=== PATIENT | female | born 2000 | race Caucasian/White ===

== ENCOUNTER 2021-03-07 13:41 | Emergency (ER) | payer OTHER ==
[~2021-03-07] VITALS: Ht 165 cm; Wt 88.0 kg
--- OUTSIDE RECORDS SUMMARY | 2021-03-07 13:48 | XMS REPORT | Clinical Summary ---
Author Author [facility] Organization [facility] Address Unknown Phone Unavailable Care Team Providers Care Manager Chemistry Name Role Phone No, Pcp [employer] PRESS OPERATOR PCP Unavailable Allergies Not on File Medications Not on file Active Problems Not on file Encounters Not on filefrom Last 3 Months Immunizations Not on file Social History Date Tobacco Use Types Packs/Day Years Used Never Assessed Sex Assigned at Date Recorded Not on file Last Filed Vital Signs Not on file Plan of Treatment Health Maintenance Due Date Last Done Comments Cervical Cancer: 10/22/2020 Screening Goals Not on file Implants Not on file Procedures Not on filefrom Last 3 Months Results Not on filefrom Last 3 Months Additional Health Concerns Not on file Insurance Type Payer Benefit Subscriber ID Effective Phone Address Plan / Dates Group [facility] [id number] [facility] [id number] [facility] (Home) [place], [place] [address] Care Teams Start Date End Date Manager Chemistry Relationship Specialty 11/22/19 No, Pcp, [employer] PRESS OPERATOR PCP - General Family N/A Do not use Medicine
--- OUTSIDE RECORDS SUMMARY | 2021-03-07 13:48 | XMS REPORT | Clinical Summary ---
Author Author [facility] Organization [facility] Address Unknown Phone Unavailable Care Team Providers Care Alarm Technician Name Role Phone Pablo Meng MD PCP Source Comments Some departments are not documenting in the electronic medical record. If you d o not see the information that you expected, contact Release of Information in [facility] [employer] Information Management department at [phone] for further assistan ce in locating additional records.[facility] Allergies No known active allergies Medications End Date Status Medication Sig Dispensed Refills Start Date Active citalopram (CELEXA) 10 mg Take 10 mg by 0 tablet mouth at bedtime daily. Active acetaminophen (TYLENOL) Take 1,000 mg 0 500 mg tablet by mouth every 6 hours as needed for Pain. Max of 4,000 mg of acetaminophen in 24 hours. Active Problems Problem Noted Date Biceps tendinitis of right shoulder 04/03/2019 Resolved Problems Problem Noted Date Resolved Date Status post reconstruction of anterior cruciate ligament 0 11/15/2016 09/20/2017 Rupture of anterior cruciate ligament of right knee 201609/20/2017 Surgical History Surgery Date Site/Laterality Comments KNEE ARTHROSCOPY 03/31/2018 Knee/Right RIGHT KNEE AR THROSCOPY WITH REMOVAL OF CYCLOPS LESION performed by Soraya Johansen MD at [facility] OR/PERIOP ACL RECONSTRUCTION 10/02/2016 Knee/Right RIGHT - REP AIR ARTHROSCOPY ANTERIOR CRUCIATE performed by Koby Johansen MD at [facility] Medical devices from this surgery are i n the Implants section. Medical History Medical History Date Comments Depression Bilateral knee pain Family History Medical History Relation Name Comments Cancer Maternal Grandfather Relation Name Status Comments Father Alive Maternal Grandfather Mother Alive Social History Date Tobacco Use Types Packs/Day Years Used Never Smoker Smokeless Tobacco: Never Used Comments Alcohol Use Standard Drinks/Week No 0 (1 standard drink = 0.6 o z pure alcohol) Sex Assigned at Date Recorded Not on file Last Filed Vital Signs Reading Time Taken Comments Vital Sign 119/67 04/03/2019 8:43 AM FRAUD EXAMINER Blood Pressure 57 04/03/2019 8:43 AM FRAUD EXAMINER Pulse 36.7 C (98.1 F) 03/31/2018 4:30 PM FRAUD EXAMINER Temperature - - Respiratory Rate 98% 03/31/2018 4:30 PM FRAUD EXAMINER Oxygen Saturation - - Inhaled Oxygen Concentration 77.1 kg (170 lb) 04/10/2018 1:27 PM FRAUD EXAMINER Weight 162.6 cm (5' 4") 04/10/2018 1:27 PM FRAUD EXAMINER Height 29.18 04/10/2018 1:27 PM FRAUD EXAMINER Body Mass Index Plan of Treatment Health Maintenance Due Date Last Done Comments CHLAMYDIA SCREENING 18-24 1999 YEARS HPV VACCINES (1 - 2-dose 10/22/2010 series) HIV SCREENING 10/22/2014 DTAP/TDAP VACCINES ( - 10/22/2017 Tdap) HEPATITIS C SCREENING 10/22/2017 PHYSICAL (COMPREHENSIVE) 10/22/2017 EXAM CERVICAL CANCER SCREENING 10/22/2020 INFLUENZA VACCINE 11/13/2020 MENINGOCOCCAL VACCINE Aged Out No longer eligib le based on patient's age to (Tory LOZANO) complete this topic Implants Device Identifier Shelf Expiration Date Model / Serial / L ot Implanted Type Area Manufactur er 05/29/2021 [id number] / NO / [id number] Screw Interference Titanium 25mm Right: Knee YOKO H AND 9mm 2mm Acl Pcl Cannulated [employer] Implanted: Qty: 1 on 10/02/2016 by Koby Johansen MD at [facility] 11/12/2018 [id number] / NO / [id number] Button Fixation 25mm Endobutton Cl Right: Knee SM ITH AND Ultra Preloaded Braided [employer] Implanted: Qty: 1 on 10/02/2016 by Koby Johansen MD at [facility] 03/16/2021 [id number] / NO / [id number] 6.5 X 35mm Cancellous Screw Right: Knee CONMED Implanted: Qty: 1 on 10/02/2016 by Koby Gaitan MD at [facility] 02/19/2021 [id number] / NO / [id number] Washer 20mm Spiked Low Profile Right: Knee CONMED Orthopedic Titanium 2.5mm KEMI Implanted: Qty: 1 on 10/02/2016 by Koby Johansen MD at [facility] Results Not on filefrom Last 3 Months Advance Directives Patient Dipper And Baker Explanation Type Date Recorded Advance Directive/DPOA Care Teams Start Date End Date Alarm Technician Relationship Specialty 08/21/16 Pablo Meng MD PCP - General Family [address] [place] [address]
--- NOTE | 2021-03-07 13:56 | ED Abdominal Pain ---
General Chief Complaint: Abdominal/GI Problems Stated Complaint: ABD PAIN/VOMITING Source of Information: Patient, EMS Exam Limitations: No Limitations (GREGORIA ANNA APRN) History of Present Illness Date Seen by Provider: Mar 07, 2021 Time Seen by Provider: 13:54 Initial Comments To ER by EMS from home with reports of a 30-minute history of diarrhea suprapubic abdominal pain and vomiting x3 or 4. She started her menstrual cycle yesterday no history of this. Her abdominal pain is suprapubic in location not lateralized to one side or the other. No fevers or chills. No history of this. Denies possibility of . Only history is anxiety managed with citalopram. Timing/Duration: 1/2 Hour Severity/Quality: Severe Location: Suprapubic Radiation: No Radiation Activities at Onset: None Associated Symptoms: Nausea/Vomiting (GREGORIA ANNA APRN) Allergies and Home Medications Allergies Coded Allergies: No Known Drug Allergies (Unverified , 03/07/21) Patient Home Medication List Home Medication List Reviewed: Yes (GREGORIA ANNA APRN) Ondansetron (Ondansetron Odt) 8 Mg Tab.rapdis, 8 MG PO Q6H PRN for NAUSEA/VOMITING Prescribed by: GREGORIA ANNA on 03/07/21 1519 Sulfamethoxazole/Trimethoprim (Bactrim Ds Tablet) 1 Each Tablet, 1 EACH PO BID Prescribed by: GREGORIA ANNA on 03/07/21 1519 Review of Systems Review of Systems Constitutional: see HPI EENTM: No Symptoms Reported Respiratory: No Symptoms Reported Cardiovascular: No Symptoms Reported Gastrointestinal: See HPI, Abdominal Pain, Diarrhea, Nausea Genitourinary: No Symptoms Reported Musculoskeletal: no symptoms reported Skin: no symptoms reported Psychiatric/Neurological: No Symptoms Reported Endocrine: No Symptoms Reported Hematologic/Lymphatic: No Symptoms Reported (GREGORIA ANNA APRN) Physical Exam Vital Signs Vital Signs - First Documented 03/07/21 03/07/21 14:13 15:47 Temp 35.6 Pulse 50 Resp 18 B/P (MAP) 135/97 (110) Pulse Ox 100 (ANISA SNEED MD) Vital Signs Capillary Refill : (GREGORIA ANNA APRN) Height/Weight/BMI Height: '" Weight: lbs. oz. kg; BMI Method: General Appearance: WD/WN, mild distress (Anxious hyperventilating. Heart rate 55 sinus blood pressure 135/57. Rates pain 9 out of 10.) HEENT: PERRL/EOMI, normal ENT inspection Neck: non-tender, full range of motion Respiratory: no respiratory distress, no accessory muscle use Cardiovascular: no murmur, bradycardia Gastrointestinal: normal bowel sounds, soft, tenderness (Suprapubic) Extremities: normal range of motion, non-tender Neurologic/Psychiatric: alert, normal mood/affect, oriented x 3 Skin: normal color, warm/dry (GREGORIA ANNA APRN) Progress/Results/Core Measures Results/Orders Lab Results Laboratory Tests Test 03/07/21 13:52 03/07/21 14:22 Range/Units White Blood Count 13.7 H 4.3-11.0 10^3/uL Red Blood Count 4.76 3.80-5.11 10^6/uL Hemoglobin 14.1 11.5-16.0 g/dL Hematocrit 41 35-52 % Mean Corpuscular Volume 86 80-99 fL Mean Corpuscular Hemoglobin 30 25-34 pg Mean Corpuscular Hemoglobin Concent 35 32-36 g/dL Red Cell Distribution Width 12.5 10.0-14.5 % Platelet Count 354 130-400 10^3/uL Mean Platelet Volume 9.9 9.0-12.2 fL Immature Granulocyte % (Auto) 0 % Neutrophils (%) (Auto) 64 42-75 % Lymphocytes (%) (Auto) 27 12-44 % Monocytes (%) (Auto) 8 0-12 % Eosinophils (%) (Auto) 1 0-10 % Basophils (%) (Auto) 0 0-10 % Neutrophils # (Auto) 8.8 H 1.8-7.8 10^3/uL Lymphocytes # (Auto) 3.7 1.0-4.0 10^3/uL Monocytes # (Auto) 1.1 H 0.0-1.0 10^3/uL Eosinophils # (Auto) 0.1 0.0-0.3 10^3/uL Basophils # (Auto) 0.1 0.0-0.1 10^3/uL Immature Granulocyte # (Auto) 0.1 0.0-0.1 10^3/uL Sodium Level 139 135-145 MMOL/L Potassium Level 3.3 L 3.6-5.0 MMOL/L Chloride Level 106 98-107 MMOL/L Carbon Dioxide Level 17 L 21-32 MMOL/L Anion Gap 16 H 5-14 MMOL/L Blood Urea Nitrogen 8 7-18 MG/DL Creatinine 0.93 0.60-1.30 MG/DL Estimat Glomerular Filtration Rate 76 BUN/Creatinine Ratio 9 Glucose Level 134 H 70-105 MG/DL Calcium Level 9.6 8.5-10.1 MG/DL Corrected Calcium 9.2 8.5-10.1 MG/DL Total Bilirubin 0.6 0.1-1.0 MG/DL Aspartate Amino Transf (AST/SGOT) 21 5-34 U/L Alanine Aminotransferase (ALT/SGPT) 15 0-55 U/L Alkaline Phosphatase 50 40-136 U/L Total Protein 8.1 6.4-8.2 GM/DL Albumin 4.5 3.2-4.5 GM/DL Serum Test, Qualitative NEGATIVE NEGATIVE Urine Color YELLOW Urine Clarity CLEAR Urine pH 6.5 5-9 Urine Specific [place] 1.025 H 1.016-1.022 Urine Protein 2+ H NEGATIVE Urine Glucose (UA) NEGATIVE NEGATIVE Urine Ketones 1+ H NEGATIVE Urine Nitrite NEGATIVE NEGATIVE Urine Bilirubin NEGATIVE NEGATIVE Urine Urobilinogen 1.0 < = 1.0 MG/DL Urine Leukocyte Esterase TRACE H NEGATIVE Urine RBC (Auto) 2+ H NEGATIVE Urine RBC 2-5 H /HPF Urine WBC 10-25 H /HPF Urine Crystals PRESENT H /LPF Urine Amorphous Sediment MOD BARAK URATES H /LPF Urine Bacteria FEW H /HPF Urine Casts NONE /LPF Urine Mucus LARGE H /LPF Urine Culture Indicated YES (ANISA SNEED MD) Medications Given in ED Current Medications Medications Dose Ordered Sig/Meghana Route Start Time Stop Time Status Last Admin Dose Admin Ceftriaxone Sodium/Dextrose 50 ml @ 100 mls/hr ONCE ONCE IV 03/07/21 15:15 03/07/21 15:44 DC 03/07/21 15:25 100 MLS/HR Fentanyl Citrate 50 mcg ONCE ONCE IVP 03/07/21 14:00 03/07/21 14:01 DC 03/07/21 14:04 50 MCG Ketorolac Tromethamine 15 mg ONCE ONCE IVP 03/07/21 14:00 03/07/21 14:01 DC 03/07/21 14:02 15 MG (ANISA SNEED MD) Vital Signs/I&O 03/07/21 03/07/21 14:13 15:47 Temp 35.6 Pulse 50 50 Resp 18 16 B/P (MAP) 135/97 (110) 135/97 Pulse Ox 100 (ANISA SNEED MD) Departure Communication (Admissions) NAME: [facility] REC#: [id number] PT STATUS: REG ER : 2000 PHYSICIAN: GREGORIA ANNA APRN ADMIT DATE: 03/07/21/ER Draft Date of Exam:03/07/21 US NON OB PELVIS COMP/TRANSVAG PROCEDURE: Pelvic comp/transvaginal sonogram. TECHNIQUE: Complete transabdominal and transvaginal pelvic ultrasound was performed. In addition, limited pelvic Doppler was performed. INDICATION: Pelvic pain with nausea and vomiting. FINDINGS: Uterus is retroverted measuring 7.1 x 3.0 x 4.0 cm. Endometrium is 5 mm in thickness. No myometrial mass is detected. Right ovary measures 4.1 x 2.5 x 2.8 cm and left ovary measures 5.2 x 1.8 x 2.7 cm. Both ovaries demonstrate blood flow. Ovaries contain small follicles. There is some free fluid in the cul-de-sac but no other abnormalities detected. IMPRESSION: Essentially unremarkable transabdominal and transvaginal pelvic ultrasound. Dictated on workstation # [id number] Dict: 03/07/21 1525 Trans: 03/07/21 1530 AS [id number] Interpreted by: TIAGO AGUILERA MD Electronically signed by: [id number]-she is completely pain-free. No nausea. I can palpate her abdomen now in the right lower quadrant suprapubic and left lower quadrant without any tenderness grimacing or guarding. Father is at the bedside now. Remains hemodynamically stable. She does have a bladder infection. I don't find anything concerning enough to warrant CT scan at this time given the resolution of her symptoms. I discussed with her and her father the need to return to ER for any vomiting persistent or worsening pain and at that point we would proceed with CT scan of the abdomen pelvis. Will empirically treat her bladder infection with Bactrim DS twice daily #10 with as needed Zofran. They both agree to return for any worsening or persistent symptoms. proced tech gave report to me of trace free fluid in the cul-de-sac, good flow to both ovaries, no cyst no fluid collection or other abnormality. (GREGORIA ANNA APRN) Impression Primary Impression: Urinary tract infection Disposition: HOME, SELF-CARE Condition: Stable Departure-Patient Inst. Decision time for Depature: 15:17 (GREGORIA ANNA APRN) Patient Instructions: Urinary Tract Infection, Adult (DC) Add. Discharge Instructions: 1. Return to ER for any concerns 2. Follow-up with your doctor next week 3. Antibiotics and nausea medication as directed. Tylenol and ibuprofen for any pain. Return to ER for any worsening or persistent pain that does not go away after a few days. All discharge instructions reviewed with patient and/or family. Voiced understanding. Scripts Ondansetron (Ondansetron Odt) 8 Mg Tab.rapdis 8 MG PO Q6H PRN for NAUSEA/VOMITING, #10 TAB Prov: GREGORIA ANNA APRN 03/07/21 Sulfamethoxazole/Trimethoprim (Bactrim Ds Tablet) 1 Each Tablet 1 EACH PO BID, #10 TAB Prov: GREGORIA ANNA APRN 03/07/21 Work/School Note: Work Release Form Date Seen in the Emergency Department: Mar 07, 2021 Return to Work: Mar 09, 2021 ATTENDING PHYSICIAN NOTE: I was physically present as attending physician in the emergency department during the care of this patient, but I was not directly involved in the decision making or delivery of care for this patient. (ANISA SNEED MD) GREGORIA ANNA APRN Mar 07, 2021 13:56 ANISA SNEED MD Mar 07, 2021 18:59
[2021-03-07] MEDS ORDERED: KETOROLAC 30 MG/ML VIAL IVP ONE (14:00)
[2021-03-07] MEDS ORDERED: fentaNYL INJ 100 MCG/2 ML AMP IVP ONE (14:00)
[2021-03-07 14:01] LABS: BASOPHILS # (AUTO) 0.1 10^3/uL (0.0-0.1); BASOPHILS % (AUTO) 0 % (0-10); EOSINOPHILS # (AUTO) 0.1 10^3/uL (0.0-0.3); EOSINOPHILS % (AUTO) 1 % (0-10); HEMATOCRIT 41 % (35-52); HEMOGLOBIN 14.1 g/dL (11.5-16.0); LYMPHOCYTES # (AUTO) 3.7 10^3/uL (1.0-4.0); LYMPHOCYTES % (AUTO) 27 % (12-44); MEAN CORPUSCULAR HEMOGLOBIN 30 pg (25-34); MEAN CORPUSCULAR HGB CONC 35 g/dL (32-36); MEAN CORPUSCULAR VOLUME 86 fL (80-99); MEAN PLATELET VOLUME 9.9 fL (9.0-12.2); MONOCYTES # (AUTO) 1.1 10^3/uL (0.0-1.0); MONOCYTES % (AUTO) 8 % (0-12); NEUTROPHILS # (AUTO) 8.8 10^3/uL (1.8-7.8); NEUTROPHILS % (AUTO) 64 % (42-75); PLATELET COUNT 354 10^3/uL (130-400); WHITE BLOOD COUNT 13.7 10^3/uL (4.3-11.0)
[2021-03-07 14:13] LABS: ALBUMIN 4.5 GM/DL (3.2-4.5); POTASSIUM 3.3 MMOL/L (3.6-5.0)
[2021-03-07 14:14] LABS: CALCIUM 9.6 MG/DL (8.5-10.1)
[2021-03-07 14:15] LABS: TOTAL PROTEIN 8.1 GM/DL (6.4-8.2)
[2021-03-07 14:17] LABS: BILIRUBIN,TOTAL 0.6 MG/DL (0.1-1.0)
[2021-03-07 14:19] LABS: CREATININE SERUM 0.93 MG/DL (0.60-1.30)
[2021-03-07 14:40] LABS: BILIRUBIN,URINE NEGATIVE (NEGATIVE); CLARITY,URINE CLEAR; COLOR,URINE YELLOW; GLUCOSE, URINE (UA) NEGATIVE (NEGATIVE); KETONES,URINE 1+ (NEGATIVE); LEUKOCYTE ESTERASE ,URINE TRACE (NEGATIVE); NITRITE,URINE NEGATIVE (NEGATIVE); PH,URINE 6.5 (5-9); PROTEIN,URINE 2+ (NEGATIVE)
[2021-03-07 14:57] LABS: AMORPHOUS SEDIMENT,UR MOD AMOR URATES /LPF; BACTERIA,URINE FEW /HPF
[2021-03-07] MEDS ORDERED: NS 100 ML (IVPB) BAG IV ONE (15:15)
[2021-03-07] MEDS ORDERED: IOHEXOL 350 MG/ML 100 ML (OMNIPAQUE 350) VIAL IV ONE (15:15)
[2021-03-07] MEDS ORDERED: cefTRIAXone 1 GM PRE-MIX 50 ML IV ONE (15:15)
[2021-03-07] MEDS ORDERED: HOLD METFORMIN - RECEIVED CONTRAST 20 ML VIAL IV SCH (15:15)
[2021-03-07] MEDS ORDERED: ONDA8TAB13 PO (15:19)
[2021-03-07] MEDS ORDERED: SULF1TAB38 PO (15:19)
--- NOTE | 2021-03-07 15:30 | Diagnostic Imaging Report ---
PROCEDURE: Pelvic comp/transvaginal sonogram. TECHNIQUE: Complete transabdominal and transvaginal pelvic ultrasound was performed. In addition, limited pelvic Doppler was performed. INDICATION: Pelvic pain with nausea and vomiting. FINDINGS: Uterus is retroverted measuring 7.1 x 3.0 x 4.0 cm. Endometrium is 5 mm in thickness. No myometrial mass is detected. Right ovary measures 4.1 x 2.5 x 2.8 cm and left ovary measures 5.2 x 1.8 x 2.7 cm. Both ovaries demonstrate blood flow. Ovaries contain small follicles. There is some free fluid in the cul-de-sac but no other abnormalities detected. IMPRESSION: Essentially unremarkable transabdominal and transvaginal pelvic ultrasound. Dictated by: Dictated on workstation # [id number]
[2021-03-07 15:47] VITALS: BP 135/97
== END 2021-03-07 15:48 | disposition home or self-care (01) ==
LOC: ER 13:43
DX: N39.0 Urinary tract infection, site not specified (principal); R06.4 Hyperventilation
CPT/HCPCS: 36415; 76830; 76856; 80053; 81000; 84703; 85025; 87088

== ENCOUNTER 2022-05-06 11:03 | Emergency (ER) | payer BC, OTHER ==
[~2022-05-06] VITALS: Ht 162 cm; Wt 95.0 kg
[~2022-05-06 11:03] MED LIST: ONDA8TAB13 PO; SULF1TAB38 PO
[2022-05-06 11:27] LABS: BILIRUBIN,URINE NEGATIVE (NEGATIVE); CLARITY,URINE CLEAR; COLOR,URINE YELLOW; GLUCOSE, URINE (UA) NEGATIVE (NEGATIVE); KETONES,URINE 2+ (NEGATIVE); LEUKOCYTE ESTERASE ,URINE TRACE (NEGATIVE); NITRITE,URINE NEGATIVE (NEGATIVE); PROTEIN,URINE 2+ (NEGATIVE)
[2022-05-06] MEDS ORDERED: ONDANSETRON 4 MG/2 ML (SDV) Z0FRAN IVP ONE (11:30)
[2022-05-06] MEDS ORDERED: NS IV 1000 ML 1,000 ML IV SCH (11:30)
[2022-05-06 11:35] LABS: BACTERIA,URINE FEW /HPF
--- NOTE | 2022-05-06 11:36 | ED GI ---
General Chief Complaint: Abdominal/GI Problems Stated Complaint: VOMITING, Nursing Triage Note: PT STATES HAS BEEN THROWING UP, D/T ETOH INTAKE, STATES DRANK VODKA LAST PM. PT STATES UNABLE TO KEEP WATER DOWN Source of Information: Patient Exam Limitations: No Limitations History of Present Illness Date Seen by Provider: May 06, 2022 Time Seen by Provider: 11:13 Initial Comments 19-year-old female presents to the ER with reports of vomiting all night. States she drank alcohol last night and thinks she overdid it. States she did not eat much yesterday. She usually does not drink alcohol. States she has been able to keep water down this morning. Denies alcohol use today. Also reports of burning pain in her chest, she thinks it is due to vomiting. She had a normal bowel movement last night. Denies dysuria. Reports feeling feverish, denies chills. Reports a little bit of shortness of air. Denies abdominal pain, diarrhea, vaginal bleeding/discharge. States she smokes marijuana approximately 2 times a week, states she smoked it last night. She also vapes. Past medical history of anxiety and depression, takes Lexapro. Allergies and Home Medications Allergies Coded Allergies: No Known Drug Allergies (Unverified , 03/07/21) Patient Home Medication List Home Medication List Reviewed: Yes Ondansetron (Ondansetron Odt) 8 Mg Tab.rapdis, 8 MG PO Q6H PRN for NAUSEA/VOMITING Prescribed by: GREGORIA ANNA on 03/07/21 1519 Ondansetron (Ondansetron Odt) 4 Mg Tab.rapdis, 4 MG SL Q4H PRN for NAUSEA/VOMITING Prescribed by: Catrachita Ochoa on 05/06/22 1229 Sulfamethoxazole/Trimethoprim (Bactrim Ds Tablet) 1 Each Tablet, 1 EACH PO BID Prescribed by: GREGORIA ANNA on 03/07/21 1519 Review of Systems Review of Systems Constitutional: see HPI Past Xcrwxcn-Cjnhav-Xdlvuc Hx Patient Social History Tobacco Use?: No Use of E-Cig and/or Vaping dev: Yes E-Cig or Vaping type used: Nicotine, Marijuana Use of E-Cig and/or Vaping Sal: Current Everyday User Substance use?: Yes Substance type: Marijuana Substance frequency: Couple times a week Alcohol Use?: Yes Alcohol type: Hard Liquor Alcohol Frequency: Several times a month Pt feels they are or have been: No Immunizations Up To Date Influenza Vaccine Up-to-Date: No; Not Current First/Initial COVID19 Vaccinat: Y Second COVID19 Vaccination Emigdio: T COVID19 Vaccine Clerical Transcriber: CRISTHIAN Past Medical History Surgery/Hospitalization HX: DENIES Last Menstrual Period: Apr 25, 2022 Physical Exam Vital Signs Vital Signs - First Documented 05/06/22 11:10 Temp 36.5 Pulse 46 Resp 18 B/P (MAP) 132/61 (84) Pulse Ox 96 O2 Delivery Room Air Capillary Refill : Less Than 3 Seconds Height/Weight/BMI Height: '" Weight: lbs. oz. kg; 36.00 BMI Method: General Appearance: WD/WN, no apparent distress Neck: supple, normal inspection Respiratory: lungs clear, normal breath sounds, no respiratory distress, no accessory muscle use Cardiovascular: no edema, no gallop, no JVD, no murmur, bradycardia Gastrointestinal: normal bowel sounds, non tender, soft, no organomegaly, no pulsatile mass Extremities: normal range of motion, normal inspection Neurologic/Psychiatric: alert, normal mood/affect, oriented x 3 Skin: normal color, warm/dry Progress/Results/Core Measures Results/Orders Lab Results Laboratory Tests Test 05/06/22 11:20 05/06/22 11:38 Range/Units Urine Color YELLOW Urine Clarity CLEAR Urine pH 8.0 5-9 Urine Specific [place] 1.020 1.016-1.022 Urine Protein 2+ H NEGATIVE Urine Glucose (UA) NEGATIVE NEGATIVE Urine Ketones 2+ H NEGATIVE Urine Nitrite NEGATIVE NEGATIVE Urine Bilirubin NEGATIVE NEGATIVE Urine Urobilinogen 0.2 < = 1.0 MG/DL Urine Leukocyte Esterase TRACE H NEGATIVE Urine RBC (Auto) NEGATIVE NEGATIVE Urine RBC NONE /HPF Urine WBC 2-5 /HPF Urine Squamous Epithelial Cells 2-5 /HPF Urine Crystals NONE /LPF Urine Bacteria FEW H /HPF Urine Casts NONE /LPF Urine Mucus NEGATIVE /LPF Urine Culture Indicated YES White Blood Count 22.6 H 4.3-11.0 10^3/uL Red Blood Count 4.80 3.80-5.11 10^6/uL Hemoglobin 14.2 11.5-16.0 g/dL Hematocrit 41 35-52 % Mean Corpuscular Volume 86 80-99 fL Mean Corpuscular Hemoglobin 30 25-34 pg Mean Corpuscular Hemoglobin Concent 35 32-36 g/dL Red Cell Distribution Width 12.4 10.0-14.5 % Platelet Count 325 130-400 10^3/uL Mean Platelet Volume 9.9 9.0-12.2 fL Immature Granulocyte % (Auto) 1 % Neutrophils (%) (Auto) 94 H 42-75 % Lymphocytes (%) (Auto) 3 L 12-44 % Monocytes (%) (Auto) 3 0-12 % Eosinophils (%) (Auto) 0 0-10 % Basophils (%) (Auto) 0 0-10 % Neutrophils # (Auto) 21.2 H 1.8-7.8 10^3/uL Lymphocytes # (Auto) 0.6 L 1.0-4.0 10^3/uL Monocytes # (Auto) 0.7 0.0-1.0 10^3/uL Eosinophils # (Auto) 0.0 0.0-0.3 10^3/uL Basophils # (Auto) 0.0 0.0-0.1 10^3/uL Immature Granulocyte # (Auto) 0.1 0.0-0.1 10^3/uL Neutrophils % (Manual) 92 % Lymphocytes % (Manual) 3 % Monocytes % (Manual) 3 % Eosinophils % (Manual) 0 % Basophils % (Manual) 0 % Band Neutrophils 2 % Blood Morphology Comment NORMAL Sodium Level 141 135-145 MMOL/L Potassium Level 4.1 3.6-5.0 MMOL/L Chloride Level 104 98-107 MMOL/L Carbon Dioxide Level 20 L 21-32 MMOL/L Anion Gap 17 H 5-14 MMOL/L Blood Urea Nitrogen 10 7-18 MG/DL Creatinine 0.87 0.60-1.30 MG/DL Estimat Glomerular Filtration Rate 97 BUN/Creatinine Ratio 11 Glucose Level 116 H 70-105 MG/DL Calcium Level 10.1 8.5-10.1 MG/DL Corrected Calcium 8.5-10.1 MG/DL Total Bilirubin 0.6 0.1-1.0 MG/DL Aspartate Amino Transf (AST/SGOT) 28 5-34 U/L Alanine Aminotransferase (ALT/SGPT) 31 0-55 U/L Alkaline Phosphatase 56 40-136 U/L Troponin I < 0.028 <0.028 NG/ML Total Protein 8.9 H 6.4-8.2 GM/DL Albumin 5.1 H 3.2-4.5 GM/DL Amylase Level 111 25-125 U/L Lipase 8 8-78 U/L My Orders Orders - CATRACHITA OCHOA APRN Ua Culture If Indicated (05/06/22 11:13) Urine Bedside (05/06/22 11:13) Comprehensive Metabolic Panel (05/06/22 11:27) Lipase (05/06/22 11:27) Amylase (05/06/22 11:27) Cbc With Automated Diff (05/06/22 11:27) Ns Iv 1000 Ml (Sodium Chloride 0.9%) (05/06/22 11:30) Ondansetron Injection (Zofran Injectio (05/06/22 11:30) Troponin I [place] (05/06/22 11:27) Ekg Tracing (05/06/22 11:27) Urine Culture (05/06/22 11:20) Manual Differential (05/06/22 11:38) Lidocaine 2% Viscous 15 Ml (Xylocaine Vi (05/06/22 12:15) Antacid Suspension (Mylanta Suspension (05/06/22 12:15) Medications Given in ED Current Medications Medications Dose Ordered Sig/Meghana Route Start Time Stop Time Status Last Admin Dose Admin Al Hydrox/Mg Hydrox/Simethicone 30 ml ONCE ONCE PO 05/06/22 12:15 05/06/22 12:16 DC 05/06/22 12:08 30 ML Lidocaine HCl 15 ml ONCE ONCE PO 05/06/22 12:15 05/06/22 12:16 DC 05/06/22 12:08 15 ML Ondansetron HCl 4 mg ONCE ONCE IVP 05/06/22 11:30 05/06/22 11:31 DC 05/06/22 11:40 4 MG Vital Signs/I&O 05/06/22 05/06/22 11:10 12:38 Temp 36.5 Pulse 46 59 Resp 18 18 B/P (MAP) 132/61 (84) 104/72 Pulse Ox 96 99 O2 Delivery Room Air Room Air Blood Pressure Mean: 84 Progress Progress Note #1: Time: 11:30 Progress Note Patient seen and evaluated, resting in recliner, no acute distress. Based on exam and symptoms, differential diagnosis includes but is not limited to g astroenteritis, veisalgia, , UTI, RI, GERD. Work-up initiated, CBC, CMP, amylase, lipase, troponin, UA, hCG, EKG. IV fluids and Zofran ordered. Progress Note #2: Time: 12:23 Progress Note Labs reviewed. CBC showed elevated WBC at 22.6, neutrophils elevated at 94, likely due to from vomiting. Considered CT abdomen pelvis, but patient has no abdominal pain. CBC showed decreased CO2 at 20, anion gap at 17, albumin elevated at 5.1, total protein elevated at 8.9. These results are likely due to lack of eating and dehydration. Troponin negative. Urinalysis showed 2+ ketones, and 2+ protein, likely due to dehydration and lack of eating. UA also showed trace leukocytes and few bacteria, will not treat due to lack of UTI symptoms. Will instruct patient to monitor for UTI symptoms, and to return or see primary care if she develops symptoms. Discussed test results with patient. Patient given GI cocktail. Patient states she is feeling better and she is ready to go home. Patient provided return precautions. Will send prescription for Zofran. Initial ECG Impression Date: May 06, 2022 Initial ECG Impression Time: 11:33 Initial ECG Rate: 46 Initial ECG Rhythm: S.Alejandro Initial ECG Intervals: Normal Initial ECG Impression: Normal Initial ECG Comparisson: No Previous ECG Available Departure Impression Primary Impression: Vomiting Qualified Codes: R11.11 - Vomiting without nausea Additional Impression: Dehydration Disposition: 01 HOME, SELF-CARE Condition: Stable Departure-Patient Inst. Decision time for Depature: 12:28 Patient Instructions: [place] Diet, Nausea and Vomiting, Adult ED Add. Discharge Instructions: Take Zofran as needed for nausea vomiting. It may cause constipation, so do not take unless needed. Slowly restart to eat food. Do not overindulge. Eat a bland diet. Follow-up with primary care provider. Monitor for signs of urinary tract infection, and see your primary care provider if you develop any. Your urine sample today will be cultured, you will be called if any bacteria grows and you need a antibiotic. Return if you develop abdominal pain, you are unable to tolerate fluids by mouth, having difficulty breathing, fevers greater than 100.4, recurrent uncontrolled vomiting, or any other new, concerning, or worsening symptoms. All discharge instructions reviewed with patient and/or family. Voiced understanding. Scripts Ondansetron (Ondansetron Odt) 4 Mg Tab.rapdis 4 MG SL Q4H PRN for NAUSEA/VOMITING, #10 TAB 0 Refills Prov: CATRACHITA OCHOA APRN 05/06/22 CATRACHITA OCHOA APRN May 06, 2022 11:36
[2022-05-06 11:53] LABS: BASOPHILS % (AUTO) 0 % (0-10); EOSINOPHILS % (AUTO) 0 % (0-10); HEMATOCRIT 41 % (35-52); HEMOGLOBIN 14.2 g/dL (11.5-16.0); LYMPHOCYTES # (AUTO) 0.6 10^3/uL (1.0-4.0); LYMPHOCYTES % (AUTO) 3 % (12-44); MEAN CORPUSCULAR HEMOGLOBIN 30 pg (25-34); MEAN CORPUSCULAR HGB CONC 35 g/dL (32-36); MEAN CORPUSCULAR VOLUME 86 fL (80-99); MEAN PLATELET VOLUME 9.9 fL (9.0-12.2); MONOCYTES # (AUTO) 0.7 10^3/uL (0.0-1.0); MONOCYTES % (AUTO) 3 % (0-12); NEUTROPHILS # (AUTO) 21.2 10^3/uL (1.8-7.8); NEUTROPHILS % (AUTO) 94 % (42-75); PLATELET COUNT 325 10^3/uL (130-400); WHITE BLOOD COUNT 22.6 10^3/uL (4.3-11.0)
[2022-05-06 12:04] LABS: ALBUMIN 5.1 GM/DL (3.2-4.5)
[2022-05-06 12:05] LABS: AMYLASE 111 U/L (25-125); CHLORIDE 104 MMOL/L (98-107); POTASSIUM 4.1 MMOL/L (3.6-5.0); SODIUM 141 MMOL/L (135-145)
[2022-05-06 12:06] LABS: CALCIUM 10.1 MG/DL (8.5-10.1)
[2022-05-06 12:07] LABS: GLUCOSE 116 MG/DL (70-105); TOTAL PROTEIN 8.9 GM/DL (6.4-8.2)
[2022-05-06 12:08] LABS: CARBON DIOXIDE 20 MMOL/L (21-32)
[2022-05-06 12:09] LABS: BILIRUBIN,TOTAL 0.6 MG/DL (0.1-1.0)
[2022-05-06 12:10] LABS: ALKALINE PHOSPHATASE 56 U/L (40-136)
[2022-05-06 12:11] LABS: CREATININE SERUM 0.87 MG/DL (0.60-1.30); GFR ESTIMATED 97
[2022-05-06 12:12] LABS: BUN/CREATININE RATIO 11
[2022-05-06 12:14] LABS: ALANINE AMINOTRANSFERASE 31 U/L (0-55); LIPASE 8 U/L (8-78)
[2022-05-06] MEDS ORDERED: LIDOCAINE 2% VISCOUS 15 ML UDC PO ONE (12:15)
[2022-05-06] MEDS ORDERED: ANTACID SUSP 30 ML UDC (MYLANTA) PO ONE (12:15)
[2022-05-06 12:18] LABS: BAND NEUTROPHILS 2 %; BASOPHILS % (MANUAL) 0 %; EOSINOPHILS % (MANUAL) 0 %; LYMPHOCYTES % (MANUAL) 3 %; MONOCYTES % (MANUAL) 3 %; NEUTROPHILS % (MANUAL) 92 %; RBC MORPH NORMAL
[2022-05-06] MEDS ORDERED: ONDA4TAB11 SL (12:29)
[2022-05-06 12:38] VITALS: BP 104/72
== END 2022-05-06 12:38 | disposition home or self-care (01) ==
LOC: EDUNIT# 11:03 → ER 11:06
DX: R11.10 Vomiting, unspecified (principal); E86.0 Dehydration; F17.290 Nicotine dependence, other tobacco product, uncomplicated
CPT/HCPCS: 36415; 80053; 81000; 82150; 83690; 84484; 84703; 85007; 85027; 87088; 93005

== ENCOUNTER 2022-07-13 22:52 | Emergency (ER) | payer BC ==
[~2022-07-13] VITALS: Ht 162.6 cm; Wt 90.7 kg
[~2022-07-13 22:52] MED LIST changes: +ONDA4TAB11 SL
--- NOTE | 2022-07-13 23:18 | ED GI ---
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 Patient has had this off and on for months. She does smoke marijuana daily and recently changed brands of marijuana that she smokes in the last 2 months. She denies abdominal cramping or pain. She does have a little chest discomfort from retching this evening. Onset of symptoms approximately an hour and a half prior to arrival. No fevers or chills. No black or bloody stools recently. She did have a normal bowel movement this evening. No blood in her emesis. No alcohol tonight. No burning with urination. No abnormal vaginal discharge. She attempted to take Zofran this evening but is not sure that it dissolved prior to throwing up again. No prior abdominal surgeries. Feels very nauseous currently. Brings a friend with her who also acts as historian. Timing/Duration: 1 Hour Severity/Quality: Severe Location: Generalized Abdomen Radiation: No Radiation Activities at Onset: Other (after eating) Modifying Factors: Improves With Other (tried Zofran) Associated Symptoms: Nausea/Vomiting Allergies and Home Medications Allergies Coded Allergies: No Known Drug Allergies (Unverified , 03/07/21) Patient Home Medication List Home Medication List Reviewed: Yes Ondansetron (Ondansetron Odt) 8 Mg Tab.rapdis, 8 MG PO Q6H PRN for NAUSEA/VOMITING Prescribed by: GREGORIA ANNA on 03/07/21 1519 Ondansetron (Ondansetron Odt) 4 Mg Tab.rapdis, 4 MG SL Q4H PRN for NAUSEA/VOMITING Prescribed by: Catrachita Ochoa on 05/06/22 1229 Sulfamethoxazole/Trimethoprim (Bactrim Ds Tablet) 1 Each Tablet, 1 EACH PO BID Prescribed by: GREGORIA ANNA on 03/07/21 1519 Review of Systems Review of Systems Constitutional: see HPI EENTM: No Symptoms Reported Respiratory: No Symptoms Reported Cardiovascular: No Symptoms Reported Gastrointestinal: Nausea, Vomiting Genitourinary: No Symptoms Reported Musculoskeletal: no symptoms reported Skin: no symptoms reported Psychiatric/Neurological: Anxiety Past Scjkptb-Xwazsn-Xltyxr Hx Immunizations Up To Date First/Initial COVID19 Vaccinat: Y Second COVID19 Vaccination Emigdio: T Past Medical History Surgery/Hospitalization HX: DENIES Physical Exam Vital Signs Vital Signs - First Documented 07/13/22 23:00 Temp 36.5 Pulse 60 Resp 24 B/P (MAP) 139/73 (95) Pulse Ox 99 Capillary Refill : Height/Weight/BMI Height: '" Weight: lbs. oz. kg; 36.00 BMI Method: General Appearance: WD/WN, mild distress HEENT: PERRL/EOMI Respiratory: lungs clear, normal breath sounds, no respiratory distress, no accessory muscle use Cardiovascular: regular rate, rhythm Gastrointestinal: normal bowel sounds, non tender, soft Neurologic/Psychiatric: alert, oriented x 3 Skin: normal color, diaphoresis Progress/Results/Core Measures Results/Orders Lab Results Laboratory Tests Test 07/13/22 23:05 Range/Units White Blood Count 13.7 H 4.3-11.0 10^3/uL Red Blood Count 4.79 3.80-5.11 10^6/uL Hemoglobin 14.1 11.5-16.0 g/dL Hematocrit 41 35-52 % Mean Corpuscular Volume 85 80-99 fL Mean Corpuscular Hemoglobin 29 25-34 pg Mean Corpuscular Hemoglobin Concent 35 32-36 g/dL Red Cell Distribution Width 11.9 10.0-14.5 % Platelet Count 325 130-400 10^3/uL Mean Platelet Volume 10.1 9.0-12.2 fL Immature Granulocyte % (Auto) 0 % Neutrophils (%) (Auto) 75 42-75 % Lymphocytes (%) (Auto) 15 12-44 % Monocytes (%) (Auto) 9 0-12 % Eosinophils (%) (Auto) 0 0-10 % Basophils (%) (Auto) 0 0-10 % Neutrophils # (Auto) 10.3 H 1.8-7.8 10^3/uL Lymphocytes # (Auto) 2.1 1.0-4.0 10^3/uL Monocytes # (Auto) 1.2 H 0.0-1.0 10^3/uL Eosinophils # (Auto) 0.0 0.0-0.3 10^3/uL Basophils # (Auto) 0.0 0.0-0.1 10^3/uL Immature Granulocyte # (Auto) 0.0 0.0-0.1 10^3/uL Sodium Level 140 135-145 MMOL/L Potassium Level 3.4 L 3.6-5.0 MMOL/L Chloride Level 105 98-107 MMOL/L Carbon Dioxide Level 20 L 21-32 MMOL/L Anion Gap 15 H 5-14 MMOL/L Blood Urea Nitrogen 8 7-18 MG/DL Creatinine 1.01 0.60-1.30 MG/DL Estimat Glomerular Filtration Rate 81 BUN/Creatinine Ratio 8 Glucose Level 125 H 70-105 MG/DL Calcium Level 10.3 H 8.5-10.1 MG/DL Corrected Calcium 8.5-10.1 MG/DL Total Bilirubin 0.7 0.1-1.0 MG/DL Aspartate Amino Transf (AST/SGOT) 21 5-34 U/L Alanine Aminotransferase (ALT/SGPT) 21 0-55 U/L Alkaline Phosphatase 50 40-136 U/L Total Protein 8.4 H 6.4-8.2 GM/DL Albumin 5.0 H 3.2-4.5 GM/DL My Orders Orders - HUAN MALDONADO MD Urine Bedside (07/13/22 22:58) Ed Iv/Invasive Line Start (07/13/22 23:16) Cbc With Automated Diff (07/13/22 23:16) Comprehensive Metabolic Panel (07/13/22 23:16) Lactated Ringers (Lr 1000 Ml Iv Solution (07/13/22 23:30) Diphenhydramine Injection (Benadryl Inje (07/13/22 23:30) Metoclopramide Injection (Reglan Injecti (07/13/22 23:30) Haloperidol Injection (Haldol Injectio (07/14/22 00:15) Lorazepam Injection (Ativan Injection) (07/14/22 00:10) Ondansetron Injection (Zofran Injectio (07/14/22 02:00) Medications Given in ED Current Medications Medications Dose Ordered Sig/Meghana Route Start Time Stop Time Status Last Admin Dose Admin Diphenhydramine HCl 25 mg ONCE ONCE IVP 07/13/22 23:30 07/13/22 23:31 DC 07/13/22 23:25 25 MG Haloperidol Lactate 2.5 mg ONCE ONCE IM 07/14/22 00:15 07/14/22 00:16 DC 07/14/22 00:25 2.5 MG Metoclopramide HCl 10 mg ONCE ONCE IVP 07/13/22 23:30 07/13/22 23:31 DC 07/13/22 23:25 10 MG Vital Signs/I&O 07/13/22 23:00 Temp 36.5 Pulse 60 Resp 24 B/P (MAP) 139/73 (95) Pulse Ox 99 Progress Progress Note #1: Time: :22 Progress Note Patient seen and evaluated by me. Evaluation today includes physical exam, CBC, Chem-12 and urine test. Physical exam findings well-developed well- nourished mildly obese female moderate distress due to nausea. Slightly diaphoretic, withdrawn. Abdominal exam reveals nontender belly with positive bowel sounds. Heart is regular. Lungs are clear. Vital signs are stable. Differential diagnosis based on history and physical exam, biliary colic, acute cholecystitis, acute appendicitis, viral syndrome viral gastroenteritis. Independent evaluation of the labs reveal CBC normal, chemistry is normal urine test is negative. Patient is treated with 2 L of IV fluids. She is treated with 10 of Reglan and 25 of Benadryl IV. Reevaluated after medications and fluids. She is continuing to retch greenish clear fluid. Further treatment 2.5 mg of IM Haldol and half milligram of Ativan IV. Patient is feeling much better, resting comfortably. Vital signs remained stable. Suspect hyperemesis secondary to THC. Her abdominal exam is benign, no peritoneal findings such as involuntary guarding, rebound or Rovsing's. She has no positive Rausch sign. Low clinical suspicion for acute appendicitis or cholecystitis. Normal white count. Recommended that she discontinue use of marijuana. She has Zofran at home should symptoms recur. Return precautions provided. Progress Note #2: Time: 01:56 Progress Note mom arrived. Patient sat up and began retching a little again. Mom was a little aggressive at first with this provider, upset that Meagan was being discharged to home and wanted to know the cause for these repeated episodes of vomiting. Meagan told her mom my thoughts may be related to her daily THC use. I did not negate the possibility of biliary colic, but reassured her that labs were normal. She still could have a component and it would be worthwhile to follow up with an ultrasound. Will give her a dose of zofran prior to d/c and see if this helps. Departure Impression Primary Impression: Nausea and vomiting Qualified Codes: R11.14 - Bilious vomiting Disposition: 01 HOME, SELF-CARE Condition: Improved Departure-Patient Inst. Decision time for Depature: 01:26 Referrals: [facility] (PCP/Family) Primary Care Physician Patient Instructions: Nausea and Vomiting, Adult ED Add. Discharge Instructions: Continue your Zofran every 8 hours as needed for nausea and vomiting. Follow a clear liquid diet tomorrow and then slowly advance your diet as tolerated. Follow-up with your primary care physician. Return to the emergency department for any new, concerning or emergent complaints. HUAN MALDONADO MD Jul 13, 2022 23:18
[2022-07-13 23:28] LABS: BASOPHILS % (AUTO) 0 % (0-10); EOSINOPHILS % (AUTO) 0 % (0-10); HEMATOCRIT 41 % (35-52); HEMOGLOBIN 14.1 g/dL (11.5-16.0); LYMPHOCYTES # (AUTO) 2.1 10^3/uL (1.0-4.0); LYMPHOCYTES % (AUTO) 15 % (12-44); MEAN CORPUSCULAR HEMOGLOBIN 29 pg (25-34); MEAN CORPUSCULAR HGB CONC 35 g/dL (32-36); MEAN CORPUSCULAR VOLUME 85 fL (80-99); MEAN PLATELET VOLUME 10.1 fL (9.0-12.2); MONOCYTES # (AUTO) 1.2 10^3/uL (0.0-1.0); MONOCYTES % (AUTO) 9 % (0-12); NEUTROPHILS # (AUTO) 10.3 10^3/uL (1.8-7.8); NEUTROPHILS % (AUTO) 75 % (42-75); PLATELET COUNT 325 10^3/uL (130-400); WHITE BLOOD COUNT 13.7 10^3/uL (4.3-11.0)
[2022-07-13] MEDS ORDERED: METOCLOPRAMIDE INJ 10 MG/2 ML (REGLAN) IVP ONE (23:30)
[2022-07-13] MEDS ORDERED: LACTATED RINGERS 1,000 ML IV SCH (23:30)
[2022-07-13] MEDS ORDERED: diphenhydrAMINE 50 MG/ML INJ (BENADRYL) IVP ONE (23:30)
[2022-07-13 23:32] LABS: CHLORIDE 105 MMOL/L (98-107); POTASSIUM 3.4 MMOL/L (3.6-5.0); SODIUM 140 MMOL/L (135-145)
[2022-07-13 23:33] LABS: CALCIUM 10.3 MG/DL (8.5-10.1)
[2022-07-13 23:34] LABS: GLUCOSE 125 MG/DL (70-105); TOTAL PROTEIN 8.4 GM/DL (6.4-8.2)
[2022-07-13 23:35] LABS: CARBON DIOXIDE 20 MMOL/L (21-32)
[2022-07-13 23:36] LABS: BILIRUBIN,TOTAL 0.7 MG/DL (0.1-1.0)
[2022-07-13 23:38] LABS: ALKALINE PHOSPHATASE 50 U/L (40-136); CREATININE SERUM 1.01 MG/DL (0.60-1.30); GFR ESTIMATED 81
[2022-07-13 23:39] LABS: BUN/CREATININE RATIO 8
[2022-07-13 23:41] LABS: ALANINE AMINOTRANSFERASE 21 U/L (0-55)
[2022-07-14] MEDS ORDERED: LORazepam INJ 2 MG/ML (ATIVAN) VIAL IVP STA (00:10)
[2022-07-14] MEDS ORDERED: HALOPERIDOL 5 MG/ML (HALDOL) VIAL IM ONE (00:15)
[2022-07-14] MEDS ORDERED: ONDANSETRON 4 MG/2 ML (SDV) Z0FRAN IVP ONE (02:00)
[2022-07-14 02:09] VITALS: BP 105/73
[2022-07-15] MEDS ORDERED: ONDA4TAB11 PO (10:50)
== END 2022-07-14 02:09 | disposition home or self-care (01) ==
LOC: EDUNIT# 22:52 → ER 22:55
DX: R11.2 Nausea with vomiting, unspecified (principal); R61 Generalized hyperhidrosis; R07.89 Other chest pain
CPT/HCPCS: 36415; 80053; 84703; 85025

== ENCOUNTER 2022-07-15 07:05 | Emergency (ER) | payer BC ==
[~2022-07-15] VITALS: Ht 162 cm; Wt 90.7 kg
[2022-07-15] MEDS ORDERED: LACTATED RINGERS 1,000 ML IV STA (07:18)
[2022-07-15] MEDS ORDERED: DROPERIDOL 5 MG/2 ML (INAPSINE) ED ONLY! IV ONE (07:30)
[2022-07-15 07:39] LABS: BASOPHILS % (AUTO) 0 % (0-10); EOSINOPHILS % (AUTO) 0 % (0-10); HEMATOCRIT 42 % (35-52); HEMOGLOBIN 14.8 g/dL (11.5-16.0); LYMPHOCYTES # (AUTO) 2.6 10^3/uL (1.0-4.0); LYMPHOCYTES % (AUTO) 22 % (12-44); MEAN CORPUSCULAR HEMOGLOBIN 30 pg (25-34); MEAN CORPUSCULAR HGB CONC 35 g/dL (32-36); MEAN CORPUSCULAR VOLUME 84 fL (80-99); MEAN PLATELET VOLUME 10.1 fL (9.0-12.2); MONOCYTES # (AUTO) 1.2 10^3/uL (0.0-1.0); MONOCYTES % (AUTO) 10 % (0-12); NEUTROPHILS # (AUTO) 8.2 10^3/uL (1.8-7.8); NEUTROPHILS % (AUTO) 68 % (42-75); PLATELET COUNT 372 10^3/uL (130-400); WHITE BLOOD COUNT 12.1 10^3/uL (4.3-11.0)
--- NOTE | 2022-07-15 07:43 | ED GI ---
General Stated Complaint: N/V Source of Information: Patient Exam Limitations: No Limitations History of Present Illness Date Seen by Provider: Jul 15, 2022 Time Seen by Provider: 07:20 Initial Comments Here with report of nausea and vomiting that restarted this morning. Seen 2 days ago for the same and prescribed ondansetron. There were concerns of hyper emesis syndrome associated with cannabis use at that time. Ultimately her nausea and vomiting got better after haloperidol on previous visit. Patient states that she restarted vomiting this morning and has been persistently vomiting since over the last couple of hours. She did try 1 ondansetron and that has not helped. She denies using marijuana in the interim 2 days. Complains of epigastric pain and pain in her throat from vomiting. Denies blood in her vomit or stool. Denies fever or chills. Timing/Duration: 1-3 Hours Severity/Quality: Moderate, Severe, Other (Nausea and vomiting) Location: Epigastric Radiation: No Radiation Activities at Onset: None Modifying Factors: Improves With Resting Associated Symptoms: No Fever/Chills; Nausea/Vomiting; No Shortness of Air, No Weakness Allergies and Home Medications Allergies Coded Allergies: No Known Drug Allergies (Unverified , 03/07/21) Patient Home Medication List Home Medication List Reviewed: Yes Ondansetron (Ondansetron Odt) 8 Mg Tab.rapdis, 8 MG PO Q6H PRN for NAUSEA/VOMITING Prescribed by: GREGORIA ANNA on 03/07/21 1519 Ondansetron (Ondansetron Odt) 4 Mg Tab.rapdis, 4 MG SL Q4H PRN for NAUSEA/VOMITING Prescribed by: Catrachita Ochoa on 05/06/22 1229 Sulfamethoxazole/Trimethoprim (Bactrim Ds Tablet) 1 Each Tablet, 1 EACH PO BID Prescribed by: GREGORIA ANNA on 03/07/21 1519 Review of Systems Review of Systems Constitutional: No chills, No fever Respiratory: Denies Shortness of Air Cardiovascular: Denies Chest Pain Gastrointestinal: Abdominal Pain; Denies Diarrhea; Nausea, Vomiting Genitourinary: No Symptoms Reported Musculoskeletal: no symptoms reported Psychiatric/Neurological: Anxiety Past Eetyyqk-Kxdxjb-Vjcavx Hx Patient Social History Tobacco Use?: No Substance use?: Yes Substance type: Marijuana Alcohol Use?: No Immunizations Up To Date First/Initial COVID19 Vaccinat: Y Second COVID19 Vaccination Emigdio: T Past Medical History Surgery/Hospitalization HX: DENIES Surgeries: No Respiratory: No Cardiac: No Neurological: No Gastrointestinal: No Family Medical History Reviewed Nursing Family Hx No Pertinent Family Hx Physical Exam Vital Signs Vital Signs - First Documented 07/15/22 07:15 Temp 36.7 Pulse 56 Resp 16 B/P (MAP) 131/63 (85) Pulse Ox 98 Capillary Refill : Height/Weight/BMI Height: '" Weight: lbs. oz. kg; 34.00 BMI Method: General Appearance: WD/WN, no apparent distress HEENT: PERRL/EOMI, pharynx normal Neck: full range of motion, supple Respiratory: lungs clear, normal breath sounds Cardiovascular: no murmur, bradycardia Gastrointestinal: soft, tenderness Extremities: non-tender, normal inspection Back: normal inspection, no CVA tenderness, no vertebral tenderness Neurologic/Psychiatric: alert, oriented x 3 Skin: normal color, warm/dry Progress/Results/Core Measures Results/Orders Lab Results Laboratory Tests Test 07/15/22 07:29 Range/Units White Blood Count 12.1 H 4.3-11.0 10^3/uL Red Blood Count 5.01 3.80-5.11 10^6/uL Hemoglobin 14.8 11.5-16.0 g/dL Hematocrit 42 35-52 % Mean Corpuscular Volume 84 80-99 fL Mean Corpuscular Hemoglobin 30 25-34 pg Mean Corpuscular Hemoglobin Concent 35 32-36 g/dL Red Cell Distribution Width 12.3 10.0-14.5 % Platelet Count 372 130-400 10^3/uL Mean Platelet Volume 10.1 9.0-12.2 fL Immature Granulocyte % (Auto) 0 % Neutrophils (%) (Auto) 68 42-75 % Lymphocytes (%) (Auto) 22 12-44 % Monocytes (%) (Auto) 10 0-12 % Eosinophils (%) (Auto) 0 0-10 % Basophils (%) (Auto) 0 0-10 % Neutrophils # (Auto) 8.2 H 1.8-7.8 10^3/uL Lymphocytes # (Auto) 2.6 1.0-4.0 10^3/uL Monocytes # (Auto) 1.2 H 0.0-1.0 10^3/uL Eosinophils # (Auto) 0.0 0.0-0.3 10^3/uL Basophils # (Auto) 0.0 0.0-0.1 10^3/uL Immature Granulocyte # (Auto) 0.0 0.0-0.1 10^3/uL Sodium Level 142 135-145 MMOL/L Potassium Level 3.4 L 3.6-5.0 MMOL/L Chloride Level 107 98-107 MMOL/L Carbon Dioxide Level 19 L 21-32 MMOL/L Anion Gap 16 H 5-14 MMOL/L Blood Urea Nitrogen 8 7-18 MG/DL Creatinine 1.07 0.60-1.30 MG/DL Estimat Glomerular Filtration Rate 75 BUN/Creatinine Ratio 7 Glucose Level 114 H 70-105 MG/DL Calcium Level 10.5 H 8.5-10.1 MG/DL Corrected Calcium 8.5-10.1 MG/DL Magnesium Level 1.8 1.6-2.4 MG/DL Total Bilirubin 0.9 0.1-1.0 MG/DL Aspartate Amino Transf (AST/SGOT) 19 5-34 U/L Alanine Aminotransferase (ALT/SGPT) 20 0-55 U/L Alkaline Phosphatase 46 40-136 U/L Total Protein 8.3 H 6.4-8.2 GM/DL Albumin 4.8 H 3.2-4.5 GM/DL Serum Test, Qualitative NEGATIVE NEGATIVE My Orders Orders - HATTIE TARIQ MD Ekg Tracing (07/15/22 07:18) Ed Iv/Invasive Line Start (07/15/22 07:18) Lactated Ringers (Lr 1000 Ml Iv Solution (07/15/22 07:18) Cbc With Automated Diff (07/15/22 07:18) Comprehensive Metabolic Panel (07/15/22 07:18) Magnesium (07/15/22 07:18) Hcg,Qualitative Serum (07/15/22 07:26) Droperidol Inj (Ed Only) (Inapsine Inj ( (07/15/22 07:30) Pantoprazole Injection (Protonix Injecti (07/15/22 09:15) Famotidine Tablet (Pepcid Tablet) (07/15/22 09:15) Fentanyl Inj (Sublimaze Injection) (07/15/22 10:42) Toradol 30 Mg Ivp (07/15/22 10:42) Medications Given in ED Current Medications Medications Dose Ordered Sig/Meghana Route Start Time Stop Time Status Last Admin Dose Admin Droperidol 1.25 mg ONCE ONCE IV 07/15/22 07:30 07/15/22 07:31 DC 07/15/22 07:35 1.25 MG Famotidine 20 mg ONCE ONCE PO 07/15/22 09:15 07/15/22 09:16 DC 07/15/22 09:44 20 MG Pantoprazole 40 mg ONCE ONCE IV 07/15/22 09:15 07/15/22 09:16 DC 07/15/22 09:44 40 MG Vital Signs/I&O 07/15/22 07:15 Temp 36.7 Pulse 56 Resp 16 B/P (MAP) 131/63 (85) Pulse Ox 98 Progress Progress Note : Progress Note Seen and evaluated. IV, labs including CBC, CMP and mag ordered. EKG ordered. LR 1 L bolus. Droperidol 1.25 mg IV ordered. Monitor patient. Differential diagnosis includes cannabis associated hyperemesis syndrome, electrolyte abnormality, dehydration 1030: White count is slightly elevated at 12.1 but otherwise CBC is nonconcerning. Chemistry does show some findings of concentration and potassium is 3.4. Serum creatinine is normal. LFTs are normal. Magnesium is normal. She is not . Overall she is feeling better but did have some burning. Tonics 40 mg IV and Pepcid 20 mg p.o. ordered. 1046: I have added fentanyl 50 mcg IV and Toradol 30 mg IV for abdominal and chest wall muscle discomfort. Mother is at bedside. Vitals are all in good range with normal O2 sat at 97% and heart rate remains 40s to 50s. Mother will stay with her today. She can follow-up at [facility] and I did discuss with her about follow-up with the surgeon. We did discuss OTC meds including omeprazole. Discharged home with return precautions. Patient and mother verbalized understanding instructions and agreement with plan. Departure Impression Primary Impression: Abdominal pain Qualified Codes: R10.10 - Upper abdominal pain, unspecified Additional Impression: Nausea & vomiting Qualified Codes: R11.2 - Nausea with vomiting, unspecified Disposition: 01 HOME, SELF-CARE Condition: Stable Departure-Patient Inst. Decision time for Depature: 10:48 Referrals: DELMAN,GOYO HINTON TAKAAKI MD [facility] (PCP) Primary Care Physician Patient Instructions: Cannabis Hyperemesis Syndrome, Abdominal Pain, Adult ED, Nausea and Vomiting, Adult Add. Discharge Instructions: Take medications as directed. Clear liquid to light diet for the next 24 hours and then advance as tolerated. Follow-up with [facility] for recheck and furth er evaluation. Also follow-up with the surgeon listed or of your choosing for recheck and further evaluation. Return for worse pain, fever, vomiting, weakness, breathing problems or other concerns as needed. You should initiate [id number] omeprazole 20 mg daily. By the 6-week pack and take that for 6 weeks. Additionally you may take [id number] Pepcid or the generic famotidine 20 mg daily to reduce stomach acid. You may take Tylenol/acetaminophen as needed for pain per package directions. Scripts Ondansetron (Ondansetron Odt) 4 Mg Tab.rapdis 4 MG PO Q6H PRN for NAUSEA/VOMITING, #12 TAB 0 Refills Prov: HATTIE TARIQ MD 07/15/22 Copy Copies To 1: RUBIA TORRES MD, TIMOTHY D MD Jul 15, 2022 07:43
[2022-07-15 07:48] LABS: ALBUMIN 4.8 GM/DL (3.2-4.5); CHLORIDE 107 MMOL/L (98-107); POTASSIUM 3.4 MMOL/L (3.6-5.0); SODIUM 142 MMOL/L (135-145)
[2022-07-15 07:49] LABS: CALCIUM 10.5 MG/DL (8.5-10.1)
[2022-07-15 07:51] LABS: GLUCOSE 114 MG/DL (70-105); TOTAL PROTEIN 8.3 GM/DL (6.4-8.2)
[2022-07-15 07:52] LABS: BILIRUBIN,TOTAL 0.9 MG/DL (0.1-1.0); CARBON DIOXIDE 19 MMOL/L (21-32)
[2022-07-15 07:54] LABS: ALKALINE PHOSPHATASE 46 U/L (40-136); CREATININE SERUM 1.07 MG/DL (0.60-1.30); GFR ESTIMATED 75
[2022-07-15 07:55] LABS: BUN/CREATININE RATIO 7
[2022-07-15 07:57] LABS: ALANINE AMINOTRANSFERASE 20 U/L (0-55); MAGNESIUM 1.8 MG/DL (1.6-2.4)
[2022-07-15] MEDS ORDERED: FAMOTIDINE 20 MG (PEPCID) TABLET PO ONE (09:15)
[2022-07-15] MEDS ORDERED: PANTOPRAZOLE 40 MG (PROTONIX) VIAL IV ONE (09:15)
[2022-07-15] MEDS ORDERED: fentaNYL INJ 100 MCG/2 ML AMP IVP STA (10:42)
[2022-07-15] MEDS ORDERED: KETOROLAC 30 MG/ML VIAL IVP STA (10:42)
[2022-07-15] MEDS ORDERED: ONDA4TAB11 PO (10:50)
[2022-07-15 11:06] VITALS: BP 121/59
[2022-07-16] MEDS ORDERED: ESCI20TA39 PO (10:34)
[2022-07-16] MEDS ORDERED: ACET-2267 PO (10:35)
== END 2022-07-15 11:06 | disposition home or self-care (01) ==
LOC: EDUNIT# 07:05 → ER 07:06
DX: R11.2 Nausea with vomiting, unspecified (principal); R10.13 Epigastric pain; D72.829 Elevated white blood cell count, unspecified
CPT/HCPCS: 36415; 80053; 83735; 84703; 85025; 93005

== ENCOUNTER 2022-07-15 22:16 | Observation (INO) | payer BC ==
[~2022-07-15] VITALS: Ht 162 cm; Wt 106.9 kg
[~2022-07-15 22:16] MED LIST changes: +ONDA4TAB11 PO
[2022-07-15 22:42] LABS: BASOPHILS % (AUTO) 0 % (0-10); EOSINOPHILS % (AUTO) 0 % (0-10); HEMATOCRIT 40 % (35-52); HEMOGLOBIN 14.1 g/dL (11.5-16.0); LYMPHOCYTES # (AUTO) 2.9 10^3/uL (1.0-4.0); LYMPHOCYTES % (AUTO) 19 % (12-44); MEAN CORPUSCULAR HEMOGLOBIN 30 pg (25-34); MEAN CORPUSCULAR HGB CONC 35 g/dL (32-36); MEAN CORPUSCULAR VOLUME 84 fL (80-99); MEAN PLATELET VOLUME 10.2 fL (9.0-12.2); MONOCYTES # (AUTO) 1.4 10^3/uL (0.0-1.0); MONOCYTES % (AUTO) 9 % (0-12); NEUTROPHILS # (AUTO) 10.7 10^3/uL (1.8-7.8); NEUTROPHILS % (AUTO) 71 % (42-75); PLATELET COUNT 369 10^3/uL (130-400)
[2022-07-15] MEDS ORDERED: LACTATED RINGERS 1,000 ML IV ONE ×2 (22:45→23:45)
[2022-07-15] MEDS ORDERED: ONDANSETRON 4 MG/2 ML (SDV) Z0FRAN IVP ONE (22:45)
[2022-07-15 22:56] LABS: CHLORIDE 104 MMOL/L (98-107); POTASSIUM 3.1 MMOL/L (3.6-5.0); SODIUM 141 MMOL/L (135-145)
[2022-07-15 22:57] LABS: ALBUMIN 4.8 GM/DL (3.2-4.5)
[2022-07-15 22:58] LABS: AMYLASE 73 U/L (25-125); CALCIUM 10.7 MG/DL (8.5-10.1)
[2022-07-15 22:59] LABS: GLUCOSE 98 MG/DL (70-105); TOTAL PROTEIN 8.1 GM/DL (6.4-8.2)
[2022-07-15 23:00] LABS: CARBON DIOXIDE 20 MMOL/L (21-32)
[2022-07-15] MEDS ORDERED: LORazepam INJ 2 MG/ML (ATIVAN) VIAL IVP ONE (23:00)
[2022-07-15] MEDS ORDERED: PANTOPRAZOLE 40 MG (PROTONIX) VIAL IV ONE (23:00)
[2022-07-15 23:03] LABS: ALKALINE PHOSPHATASE 43 U/L (40-136); CREATININE SERUM 1.06 MG/DL (0.60-1.30); GFR ESTIMATED 76
[2022-07-15 23:04] LABS: BUN/CREATININE RATIO 10
[2022-07-15 23:06] LABS: ALANINE AMINOTRANSFERASE 21 U/L (0-55); MAGNESIUM 1.6 MG/DL (1.6-2.4)
[2022-07-15 23:07] LABS: CREATINE KINASE 128 U/L (29-168); LIPASE 35 U/L (8-78)
[2022-07-15 23:15] LABS: ERYTHROCYTE SEDIMENTATION RATE 8 MM/HR (0-20); LYMPHOCYTES % (MANUAL) 26 %; MONOCYTES % (MANUAL) 7 %; NEUTROPHILS % (MANUAL) 67 %
[2022-07-15 23:17] LABS: ACETAMINOPHEN < 10 UG/ML (10-30)
[2022-07-15] MEDS ORDERED: NS IV 1000 ML 1,000 ML IV SCH (23:45)
[2022-07-16] MEDS ORDERED: ONDANSETRON 4 MG/2 ML (SDV) Z0FRAN IVP ONE (00:15)
[2022-07-16] MEDS ORDERED: IOHEXOL 350 MG/ML 100 ML (OMNIPAQUE 350) VIAL IV ONE (00:15)
[2022-07-16] MEDS ORDERED: NS 100 ML (IVPB) BAG IV ONE (00:15)
[2022-07-16] MEDS ORDERED: HOLD METFORMIN - RECEIVED CONTRAST 20 ML VIAL IV SCH (00:15)
--- NOTE | 2022-07-16 00:17 | ED GI ---
General Chief Complaint: Abdominal/GI Problems Stated Complaint: N/V - STIFF HANDS Nursing Triage Note: pt presents to ED for third time this weekend for c/o nausea and vomiting. pt had been feeling better today until she attempted to eat chicken noodle soup and got sick again. pt hyperventilating during triage and coached to take slow, steady breaths. Source of Information: Patient, Other (MOTHER) History of Present Illness Date Seen by Provider: Jul 16, 2022 Time Seen by Provider: 22:34 Initial Comments PT ARRIVES VIA POV FROM HOME WITH MOTHER PT HAS BEEN SICK SINCE SATURDAY WITH: -NAUSEA AND VOMITING SHE STATES SHE HAS VOMITED TOO MANY TIMES TO COUNT. NO DIARRHEA Allergies and Home Medications Allergies Coded Allergies: No Known Drug Allergies (Unverified , 03/07/21) Patient Home Medication List Ondansetron (Ondansetron Odt) 8 Mg Tab.rapdis, 8 MG PO Q6H PRN for NAUSEA/VO MITING Prescribed by: GREGORIA ANNA on 03/07/21 1519 Ondansetron (Ondansetron Odt) 4 Mg Tab.rapdis, 4 MG SL Q4H PRN for NAUSEA/VOMITING Prescribed by: Catrachita Ochoa on 05/06/22 1229 Ondansetron (Ondansetron Odt) 4 Mg Tab.rapdis, 4 MG PO Q6H PRN for NAUSEA/VOMITING Prescribed by: HATTIE TARIQ on 07/15/22 1050 Sulfamethoxazole/Trimethoprim (Bactrim Ds Tablet) 1 Each Tablet, 1 EACH PO BID Prescribed by: GREGORIA ANNA on 03/07/21 1519 Past Uuepkyv-Zoclmy-Akkjjy Hx Patient Social History Tobacco Use?: No Use of E-Cig and/or Vaping dev: Yes Substance use?: Yes Substance type: Marijuana Alcohol Use?: No Pt feels they are or have been: No Immunizations Up To Date Influenza Vaccine Up-to-Date: No; Not Current First/Initial COVID19 Vaccinat: Y Second COVID19 Vaccination Emigdio: T Third COVID19 Vaccination Date: Y Past Medical History Surgery/Hospitalization HX: DENIES Surgeries: No Respiratory: No Cardiac: No Neurological: No Gastrointestinal: No Family Medical History No Pertinent Family Hx Physical Exam Vital Signs Vital Signs - First Documented 07/15/22 22:24 Temp 36.7 Pulse 62 Resp 20 B/P (MAP) 121/86 (98) Pulse Ox 99 O2 Delivery Room Air Capillary Refill : Less Than 3 Seconds Height/Weight/BMI Height: '" Weight: lbs. oz. kg; 34.00 BMI Method: Focused Exam Lactate Level 07/15/22 23:00: Lactic Acid Level 3.33*H Lactic Acid Level Laboratory Tests Test 07/15/22 23:00 Lactic Acid Level 3.33 MMOL/L (0.50-2.00) *H Progress/Results/Core Measures Results/Orders Lab Results Laboratory Tests Test 07/15/22 00:10 07/15/22 22:30 07/15/22 22:45 07/15/22 23:00 Range/Units Urine Color YELLOW Urine Clarity CLEAR Urine pH 7.0 5-9 Urine Specific [place] 1.010 L 1.016-1.022 Urine Protein 1+ H NEGATIVE Urine Glucose (UA) NEGATIVE NEGATIVE Urine Ketones 3+ H NEGATIVE Urine Nitrite NEGATIVE NEGATIVE Urine Bilirubin 1+ H NEGATIVE Urine Urobilinogen 1.0 < = 1.0 MG/DL Urine Leukocyte Esterase NEGATIVE NEGATIVE Urine RBC (Auto) TRACE-I H NEGATIVE Urine RBC 0-2 /HPF Urine WBC NONE /HPF Urine Squamous Epithelial Cells 0-2 /HPF Urine Crystals NONE /LPF Urine Bacteria NEGATIVE /HPF Urine Casts NONE /LPF Urine Mucus NEGATIVE /LPF Urine Culture Indicated CULTURE PENDING Urine Opiates Screen NEGATIVE NEGATIVE Urine Oxycodone Screen NEGATIVE NEGATIVE Urine Methadone Screen NEGATIVE NEGATIVE Urine Propoxyphene Screen NEGATIVE NEGATIVE Urine Barbiturates Screen NEGATIVE NEGATIVE Ur Tricyclic Antidepressants Screen NEGATIVE NEGATIVE Urine Phencyclidine Screen NEGATIVE NEGATIVE Urine Amphetamines Screen NEGATIVE NEGATIVE Urine Methamphetamines Screen NEGATIVE NEGATIVE Urine Benzodiazepines Screen POSITIVE H NEGATIVE Urine Cocaine Screen NEGATIVE NEGATIVE Urine Cannabinoids Screen POSITIVE H NEGATIVE White Blood Count 15.0 H 4.3-11.0 10^3/uL Red Blood Count 4.78 3.80-5.11 10^6/uL Hemoglobin 14.1 11.5-16.0 g/dL Hematocrit 40 35-52 % Mean Corpuscular Volume 84 80-99 fL Mean Corpuscular Hemoglobin 30 25-34 pg Mean Corpuscular Hemoglobin Concent 35 32-36 g/dL Red Cell Distribution Width 12.1 10.0-14.5 % Platelet Count 369 130-400 10^3/uL Mean Platelet Volume 10.2 9.0-12.2 fL Immature Granulocyte % (Auto) 0 % Neutrophils (%) (Auto) 71 42-75 % Lymphocytes (%) (Auto) 19 12-44 % Monocytes (%) (Auto) 9 0-12 % Eosinophils (%) (Auto) 0 0-10 % Basophils (%) (Auto) 0 0-10 % Neutrophils # (Auto) 10.7 H 1.8-7.8 10^3/uL Lymphocytes # (Auto) 2.9 1.0-4.0 10^3/uL Monocytes # (Auto) 1.4 H 0.0-1.0 10^3/uL Eosinophils # (Auto) 0.0 0.0-0.3 10^3/uL Basophils # (Auto) 0.0 0.0-0.1 10^3/uL Immature Granulocyte # (Auto) 0.1 0.0-0.1 10^3/uL Neutrophils % (Manual) 67 % Lymphocytes % (Manual) 26 % Monocytes % (Manual) 7 % Erythrocyte Sedimentation Rate 8 0-20 MM/HR Sodium Level 141 135-145 MMOL/L Potassium Level 3.1 L 3.6-5.0 MMOL/L Chloride Level 104 98-107 MMOL/L Carbon Dioxide Level 20 L 21-32 MMOL/L Anion Gap 17 H 5-14 MMOL/L Blood Urea Nitrogen 11 7-18 MG/DL Creatinine 1.06 0.60-1.30 MG/DL Estimat Glomerular Filtration Rate 76 BUN/Creatinine Ratio 10 Glucose Level 98 70-105 MG/DL Calcium Level 10.7 H 8.5-10.1 MG/DL Corrected Calcium 8.5-10.1 MG/DL Magnesium Level 1.6 1.6-2.4 MG/DL Total Bilirubin 1.0 0.1-1.0 MG/DL Aspartate Amino Transf (AST/SGOT) 20 5-34 U/L Alanine Aminotransferase (ALT/SGPT) 21 0-55 U/L Alkaline Phosphatase 43 40-136 U/L Total Creatine Kinase 128 29-168 U/L Creatine Kinase MB 1.0 <6.6 NG/ML Myoglobin 57.1 10.0-92.0 NG/ML Troponin I < 0.028 <0.028 NG/ML C-Reactive Protein High Sensitivity 0.06 0.00-0.50 MG/DL Total Protein 8.1 6.4-8.2 GM/DL Albumin 4.8 H 3.2-4.5 GM/DL Amylase Level 73 25-125 U/L Lipase 35 8-78 U/L TSH [place] Testing 1.20 0.35-4.94 UIU/ML Serum Test, Qualitative NEGATIVE NEGATIVE Acetaminophen Level < 10 L 10-30 UG/ML Serum Alcohol < 10 <10 MG/DL Influenza Type A (RT-PCR) Not Detected Not Detecte Influenza Type B (RT-PCR) Not Detected Not Detecte SARS-CoV-2 RNA (RT-PCR) Not Detected Not Detecte Lactic Acid Level 3.33 *H 0.50-2.00 MMOL/L My Orders Orders - MICHELLE COLLINS DO Ed Iv/Invasive Line Start (07/15/22 22:35) Monitor-Rhythm Ecg Trace Only (07/15/22 22:35) Alcohol (07/15/22 22:35) Amylase (07/15/22 22:35) Cbc With Automated Diff (07/15/22 22:35) Comprehensive Metabolic Panel (07/15/22 22:35) Creatine Kinase (07/15/22 22:35) Creatine Kinase Mb (07/15/22 22:35) Hs C Reactive Protein (07/15/22 22:35) Drug Screen Stat (Urine) (07/15/22 22:35) Hcg,Qualitative Serum (07/15/22 22:35) Lipase (07/15/22 22:35) Magnesium (07/15/22 22:35) Thyroid Analyzer (07/15/22 22:35) Ua Culture If Indicated (07/15/22 22:35) Erythrocyte Sedimentation Rate (07/15/22 22:35) Myoglobin Serum (07/15/22 22:35) Troponin I [place] (07/15/22 22:35) Ed Iv/Invasive Line Start (07/15/22 22:35) Lactated Ringers (Lr 1000 Ml Iv Solution (07/15/22 22:45) Ondansetron Injection (Zofran Injectio (07/15/22 22:45) Covid 19 Inhouse Test (07/15/22 22:36) Influenza A And B By Pcr (07/15/22 22:36) Isolation Central Supply Req (07/15/22 22:36) Acetaminophen (07/15/22 22:30) Manual Differential (07/15/22 22:30) Lactic Acid Analyzer (07/15/22 22:51) Blood Culture (07/15/22 22:51) Urine Culture (07/15/22 22:51) Vital Signs Adult Sepsis Patie Q15M (07/15/22 22:51) Remove Rings In Anticipation O (07/15/22 22:51) Pantoprazole Injection (Protonix Injecti (07/15/22 23:00) Lorazepam Injection (Ativan Injection) (07/15/22 23:00) Ct Abd/Pelv W (Appendicitis) (07/15/22 23:16) Ed Iv/Invasive Line Start (07/15/22 23:34) Lactated Ringers (Lr 1000 Ml Iv Solution (07/15/22 23:45) Ns Iv 1000 Ml (Sodium Chloride 0.9%) (07/15/22 23:45) Iohexol Injection (Omnipaque 350 Mg/Ml 1 (07/16/22 00:15) Received Contrast (Hold Metformin- Contr (07/16/22 00:15) Ns (Ivpb) (Sodium Chloride 0.9% Ivpb Bag (07/16/22 00:15) Ondansetron Injection (Zofran Injectio (07/16/22 00:15) Metoclopramide Injection (Reglan Injecti (07/16/22 00:45) Droperidol Inj (Ed Only) (Inapsine Inj ( (07/16/22 01:15) Scopolamine Patch (Transderm-Scop Patch) (07/16/22 01:15) Lactic Acid Analyzer (07/16/22 01:59) Medications Given in ED Current Medications Medications Dose Ordered Sig/Meghana Route Start Time Stop Time Status Last Admin Dose Admin Droperidol 2.5 mg ONCE ONCE IV 07/16/22 01:15 07/16/22 01:16 DC 07/16/22 01:18 2.5 MG Iohexol 100 ml ONCE ONCE IV 07/16/22 00:15 07/16/22 00:16 DC 07/16/22 00:08 80 ML Lactated Ringer's 1,000 ml @ 0 mls/hr Q0M ONCE IV 07/15/22 22:45 07/15/22 22:46 DC 07/15/22 22:45 1,000 MLS/HR Lactated Ringer's 1,000 ml @ 0 mls/hr Q0M ONCE IV 07/15/22 23:45 07/15/22 23:46 DC 07/16/22 00:08 0 MLS/HR Lorazepam 1 mg ONCE ONCE IVP 07/15/22 23:00 07/15/22 23:01 DC 07/15/22 23:07 1 MG Metoclopramide HCl 10 mg ONCE ONCE IVP 07/16/22 00:45 07/16/22 00:46 DC 07/16/22 00:41 10 MG Ondansetron HCl 4 mg ONCE ONCE IVP 07/15/22 22:45 07/15/22 22:46 DC 07/15/22 22:45 4 MG Ondansetron HCl 8 mg ONCE ONCE IVP 07/16/22 00:15 07/16/22 00:16 DC 07/16/22 00:34 8 MG Pantoprazole 40 mg ONCE ONCE IV 07/15/22 23:00 07/15/22 23:01 DC 07/15/22 23:07 40 MG Scopolamine 1.5 mg ONCE ONCE TD 07/16/22 01:15 07/16/22 01:16 DC 07/16/22 01:17 1.5 MG Sodium Chloride 100 ml ONCE ONCE IV 07/16/22 00:15 07/16/22 00:16 DC 07/16/22 00:08 80 ML Vital Signs/I&O 07/15/22 07/15/22 22:24 23:02 Temp 36.7 37.2 Pulse 62 57 Resp 20 14 B/P (MAP) 121/86 (98) 121/86 Pulse Ox 99 100 O2 Delivery Room Air Room Air 07/16/22 00:00 Intake Total 1000 ml Balance 1000 ml Blood Pressure Mean: 98 Progress Progress Note : Progress Note GIVEN: -IV FLUIDS AGGRESSIVELY -ZOFRAN--MULTIPLE DOSES -REGLAN -PROTONIX -SCOPOLAMINE -INAPSINE -ATIVAN WBC ELEVATED--SEPSIS LAB ADDED. LACTIC ACID IS ELEVATED--MOM REFUSED REPEAT LAB DRAW FOR REPEAT LACTIC ACID PT WITH CONSTANT VERY HARSH, VERY FORCED RETCHING. PT IS HYPERVENTILATING, AND EXTREMELY ANXIOUS, RAPIDLY ESCALATING TO NEARLY HYSTERICAL SHE COMPLAINS OF HER CHEST AND STOMACH NOW HURTING SHE IS ESCALATING. TRIED MULTIPLE TIMES TO DE-ESCALATE PT WITH BREATHING TECHNIQUES AND USING CALM VOICE, ETC. WITHOUT SUCCESS--ATIVAN ORDERED MOTHER IS HERE WITH PT, SHE IS SOMEWHAT HOSTILE AND VERY ARGUMENTATIVE AND NOT VERY RECEPTIVE TO POSSIBILITY THAT THIS MAY BE CAUSED BY PT'S MARIJUANA USE. MOM THREATENING TO "JUST TAKE HER SOMEWHERE ELSE WHERE THEY CAN FIX THIS, BECAUSE WHAT YOU'RE DOING ISN'T WORKING". ADVISED PT AND MOTHER THAT THIS WAS NOT A "QUICK FIX" PROBLEM, AND THAT OTHER HOSPITALS HAVE THE SAME MEDICATIONS WE HAVE TO TREAT THIS PROBLEM, AND THAT WE WOULD ADMIT PT HERE, DO ADDITIONAL TESTING SUCH ULTRASOUND TO RULE OUT GALLBLADDER DISEASE A CAUSE, OR POSSIBLY CONSULT SURGEON FOR EGD, WELL GIVE ADDITIONAL MEDICATIONS FOR HER SYMPTOMS. DISCUSSED AT LENGTH WITH PT AND MOTHER ABOUT TREATMENT, TEST RESULTS, ME DICATIONS, AND LIKELY CAUSES. DISCUSSED ADMIT, AND ANTICIPATED COURSE, AND MOM EVENTUALLY AGREES. REVIEWED PRIOR RECORDS--ALL ER VISITS, ESSENTIALLY FOR THIS SAME COMPLAINT. MARKED DELAY IN GETTING PT UPSTAIRS DUE TO NURSING ISSUES ON THE FLOOR. Diagnostic Imaging Comments CT ABDOMEN/PELVIS--PER [facility] VIA FAX AT 0047 -NO ACUTE FINDINGS Reviewed: Reviewed by Me Departure Communication (Admissions) 0100--SPOKE WITH DR. MARC, HOSPITALIST, ACCEPTS PT FOR ADMIT. Impression Primary Impression: Intractable nausea and vomiting Additional Impression: Cannabis hyperemesis syndrome concurrent with and due to cannabis abuse Disposition: ADMITTED INPATIENT Condition: Stable Admissions Decision to Admit Reason: Admit from ER (General) Decision to Admit/Date: Jul 16, 2022 Time/Decision to Admit Time: 01:00 Departure-Patient Inst. Referrals: [facility] (PCP/Family) Primary Care Physician MICHELLE COLLINS DO Jul 16, 2022 00:17
[2022-07-16 00:37] LABS: CLARITY,URINE CLEAR; COLOR,URINE YELLOW; GLUCOSE, URINE (UA) NEGATIVE (NEGATIVE); KETONES,URINE 3+ (NEGATIVE); LEUKOCYTE ESTERASE ,URINE NEGATIVE (NEGATIVE); NITRITE,URINE NEGATIVE (NEGATIVE); PROTEIN,URINE 1+ (NEGATIVE)
[2022-07-16] MEDS ORDERED: METOCLOPRAMIDE INJ 10 MG/2 ML (REGLAN) IVP ONE (00:45)
[2022-07-16 00:50] LABS: BACTERIA,URINE NEGATIVE /HPF; BILIRUBIN,URINE 1+ (NEGATIVE); RBC,URINE 0-2 /HPF; SQUAMOUS EPITHELIAL CELL,UR 0-2 /HPF
[2022-07-16 00:55] LABS: AMPHETAMINE SCREEN, URINE NEGATIVE (NEGATIVE); BARBITURATE SCREEN URINE NEGATIVE (NEGATIVE); BENZODIAZEPINES SCREEN URINE POSITIVE (NEGATIVE); CANNABINOID SCREEN, URINE POSITIVE (NEGATIVE); COCAINE SCREEN URINE NEGATIVE (NEGATIVE); METHADONE STAT NEGATIVE (NEGATIVE); OPIATE SCREEN URINE NEGATIVE (NEGATIVE); OXYCODONE STAT NEGATIVE (NEGATIVE); PROPOXYPHENE STAT NEGATIVE (NEGATIVE); TRICYCLIC ANTIDEPRESSANTS SCRE NEGATIVE (NEGATIVE)
[2022-07-16] MEDS ORDERED: SCOPOLAMINE 1.5 MG (TRANSDERM-SCOP) PATCH TD ONE (01:15)
[2022-07-16] MEDS ORDERED: DROPERIDOL 5 MG/2 ML (INAPSINE) ED ONLY! IV ONE (01:15)
[2022-07-16 03:51] VITALS: BP 147/88
[2022-07-16] MEDS ORDERED: D5 1/2 NS W/KCL 20 MEQ/L 1,000 ML IV ONE (03:55)
[2022-07-16] MEDS: D5 1/2 NS W/KCL 20 MEQ/L 1,000 ML IV SCH ×4 (04:00→13:28)
[2022-07-16] MEDS ORDERED: METOCLOPRAMIDE INJ 10 MG/2 ML (REGLAN) IV PRN (04:00)
[2022-07-16] MEDS ORDERED: ONDANSETRON 4 MG/2 ML (SDV) Z0FRAN IV PRN (04:00)
[2022-07-16] MEDS ORDERED: LORazepam INJ 2 MG/ML (ATIVAN) VIAL IV PRN (04:00)
[2022-07-16] MEDS: PROMETHAZINE INJ 25 MG/ML (PHENERGAN) AMP IV PRN ×3 (04:17→20:07)
--- NOTE | 2022-07-16 07:18 | Diagnostic Imaging Report ---
PROCEDURE: CT abdomen and pelvis with contrast, rule out appendicitis. TECHNIQUE: Multiple contiguous axial images were obtained through the abdomen and pelvis after the administration of intravenous contrast. All CT scans use one or more of the following dose optimizing techniques: automated exposure control, MA and/or KvP adjustment based on patient size and exam type or iterative reconstruction. INDICATION: Nausea, vomiting, right lower quadrant pain. No priors. FINDINGS: The appendix air-containing nondilated and normal. There is no hydroureteronephrosis. No radiodense urinary tract calculi. Liver, spleen, adrenals and pancreas nonacute. There is no biliary abnormality. Aortoiliac vessels patent and nonaneurysmal and nonacute. Small volume free fluid in the cul-de-sac within physiologic limits. The uterus, adnexa and urinary bladder appeared unremarkable. No abscess or acute fluid collection. No findings of hemorrhage. No focal inflammatory changes. No pneumatosis or free gas. IMPRESSION: Likely physiologic free fluid in the pelvic cul-de-sac, no obstructive features, inflammatory processes or acute-appearing abnormalities. Dictated by: Dictated on workstation # [id number]
[2022-07-16 07:52] VITALS: BP 124/68
[2022-07-16] MEDS: PANTOPRAZOLE 40 MG (PROTONIX) VIAL IV SCH (08:25)
--- NOTE | 2022-07-16 09:29 | Diagnostic Imaging Report ---
PROCEDURE: US Abdomen, limited. TECHNIQUE: Multiple realtime grayscale images were obtained over the abdomen in various projections. INDICATION: Nausea and vomiting. FINDINGS: The liver is normal in size without focal lesions. There is hepatopetal flow in main portal vein. There is no biliary ductal dilatation. Common bile duct measures 3 mm. There is some questionable gallbladder sludge. There is no cholelithiasis or wall thickening or pericholecystic fluid. Visualized portions of the pancreas are unremarkable. Aorta is nonaneurysmal. IVC is patent. Right kidney is normal. There is no ascites. There is no right upper quadrant discomfort during the exam. IMPRESSION: Questionable gallbladder sludge otherwise unremarkable right upper quadrant ultrasound. Dictated by: Dictated on workstation # [id number]
[2022-07-16 10:16] LABS: BASOPHILS % (AUTO) 0 % (0-10); EOSINOPHILS % (AUTO) 0 % (0-10); HEMATOCRIT 38 % (35-52); HEMOGLOBIN 12.8 g/dL (11.5-16.0); LYMPHOCYTES # (AUTO) 1.8 10^3/uL (1.0-4.0); LYMPHOCYTES % (AUTO) 14 % (12-44); MEAN CORPUSCULAR HEMOGLOBIN 29 pg (25-34); MEAN CORPUSCULAR HGB CONC 34 g/dL (32-36); MEAN CORPUSCULAR VOLUME 86 fL (80-99); MEAN PLATELET VOLUME 10.3 fL (9.0-12.2); MONOCYTES # (AUTO) 1.1 10^3/uL (0.0-1.0); MONOCYTES % (AUTO) 9 % (0-12); NEUTROPHILS # (AUTO) 10.1 10^3/uL (1.8-7.8); NEUTROPHILS % (AUTO) 77 % (42-75); PLATELET COUNT 280 10^3/uL (130-400); WHITE BLOOD COUNT 13.1 10^3/uL (4.3-11.0)
[2022-07-16 10:27] LABS: ALBUMIN 3.8 GM/DL (3.2-4.5); POTASSIUM 3.5 MMOL/L (3.6-5.0)
[2022-07-16 10:28] LABS: CALCIUM 8.7 MG/DL (8.5-10.1)
[2022-07-16 10:29] LABS: TOTAL PROTEIN 6.2 GM/DL (6.4-8.2)
[2022-07-16 10:31] LABS: BILIRUBIN,TOTAL 0.6 MG/DL (0.1-1.0)
[2022-07-16 10:33] LABS: CREATININE SERUM 0.85 MG/DL (0.60-1.30)
[2022-07-16] MEDS ORDERED: ESCI20TA39 PO (10:34)
[2022-07-16] MEDS ORDERED: ACET-2267 PO (10:35)
--- NOTE | 2022-07-16 11:16 | History & Physical-Hospitalist ---
History of Present Illness HPI/Chief Complaint Patient is a 21-year-old female who presented to the hospital secondary to intractable nausea and vomiting. She has been in the emergency department 3 times now for similar symptoms. She was here on July 13, July 15, and July 16. She reports that it started on July 13 after eating at a local bar having a chicken sandwich and onion rings. She was sent home with Marilee from the emergency department but that did not help. She attempted to eat some chicken noodle soup yesterday and that started her vomiting and abdominal pain. Her symptoms were unable to be controlled in the ER and so she was admitted for further management. She reports feeling better this morning and is no longer vomiting but does have a scopolamine patch on. Mom is at bedside and assist with history. Mom reports she has been using marijuana to help her sleep and states that she knows patient is going to need to stop that. Source: patient Date Seen 07/16/22 Time Seen by a Provider: 09:30 Attending Physician C[facility] PCP Admitting Physician: Iraida Marc MD Attending Physician: Iraida Marc MD Referring Physician Date of Admission Jul 16, 2022 at 03:09 Home Medications & Allergies Home Medications Reviewed patient Home Medication Reconciliation performed by pharmacy medication reconciliations audiovisual aids technician and/or nursing. Patients Allergies have been reviewed. Allergies Allergies Coded Allergies No Known Drug Allergies (Dyiehfkgrx01/23/21) Past Wueqtjm-Fmfqmf-Hsiogm Hx Patient Social History Employed/Student: student, full-time Tobacco Use?: No Use of E-Cig and/or Vaping dev: Yes E-Cig or Vaping type used: Nicotine, Marijuana Use of E-Cig and/or Vaping Sal: Current Everyday User Substance use?: Yes Substance type: Nicotine, Marijuana Substance frequency: Couple times a week Alcohol Use?: Yes Alcohol Frequency: Once in a while Pt feels they are or have been: No Immunizations Up To Date First/Initial COVID19 Vaccinat: Y Second COVID19 Vaccination Emigdio: T Current Status status: No status: No Advance Directives: No Communicates: Verbally Primary Language: Citizen Of [place] Preferred Spoken Language: Citizen Of [place] Is interpretation needed?: No Implanted or Applied Medical D: None Family Medical History No Pertinent Family Hx Review of Systems Constitutional: see HPI Physical Exam Physical Exam Vital Signs Vital Signs - First Documented 07/15/22 22:24 Temp 36.7 Pulse 62 Resp 20 B/P (MAP) 121/86 (98) Pulse Ox 99 O2 Delivery Room Air Capillary Refill : Less Than 3 Seconds Height, Weight, BMI Height: '" Weight: lbs. oz. kg; 40.73 BMI Method: General Appearance: No Apparent Distress, Obese Respiratory: Lungs Clear, No Respiratory Distress Cardiovascular: Regular Rate, Rhythm, No Murmur Gastrointestinal: Normal Bowel Sounds, Non Tender, Soft; No Distended, No Guarding, No Rebound, No Tenderness Neurologic/Psychiatric: Alert, Oriented x3 (sleepy ) Results Results/Procedures Labs Laboratory Tests 07/15/22 22:30 07/16/22 09:45 07/17/22 05:05 Patient resulted labs reviewed. Imaging [facility] [place], [place] NAME: ZANA SAEED [facility] REC#: [id number] PT STATUS: ADM Carlton : 2000 PHYSICIAN: MICHELLE COLLINS DO ADMIT DATE: 07/16/22 Signed Date of Exam:07/15/22 CT ABD/PELV W (APPENDICITIS) PROCEDURE: CT abdomen and pelvis with contrast, rule out appendicitis. TECHNIQUE: Multiple contiguous axial images were obtained through the abdomen and pelvis after the administration of intravenous contrast. All CT scans use one or more of the following dose optimizing techniques: automated exposure control, MA and/or KvP adjustment based on patient size and exam type or iterative reconstruction. INDICATION: Nausea, vomiting, right lower quadrant pain. No priors. FINDINGS: The appendix air-containing nondilated and normal. There is no hydroureteronephrosis. No radiodense urinary tract calculi. Liver, spleen, adrenals and pancreas nonacute. There is no biliary abnormality. Aortoiliac vessels patent and nonaneurysmal and nonacute. Small volume free fluid in the cul-de-sac within physiologic limits. The uterus, adnexa and urinary bladder appeared unremarkable. No abscess or acute fluid collection. No findings of hemorrhage. No focal inflammatory changes. No pneumatosis or free gas. IMPRESSION: Likely physiologic free fluid in the pelvic cul-de-sac, no obstructive features, inflammatory processes or acute-appearing abnormalities. Dictated by: Dictated on workstation # [id number] Dict: 07/16/22 0706 Trans: 07/16/22 1034 CVB [id number] Interpreted by: HIREN SOUZA Electronically signed by: HIREN SOUZA 07/16/22 1034 [facility] [place], [place] NAME: ZANA SAEED [facility] REC#: [id number] PT STATUS: ADM Carl[place] : 2000 PHYSICIAN: IRAIDA MARC MD ADMIT DATE: 07/16/22 Draft Date of Exam:07/16/22 US ABDOMEN LIMITED [id number] PROCEDURE: US Abdomen, limited. TECHNIQUE: Multiple realtime grayscale images were obtained over the abdomen in various projections. INDICATION: Nausea and vomiting. FINDINGS: The liver is normal in size without focal lesions. There is hepatopetal flow in main portal vein. There is no biliary ductal dilatation. Common bile duct measures 3 mm. There is some questionable gallbladder sludge. There is no cholelithiasis or wall thickening or pericholecystic fluid. Visualized portions of the pancreas are unremarkable. Aorta is nonaneurysmal. IVC is patent. Right kidney is normal. There is no ascites. There is no right upper quadrant discomfort during the exam. IMPRESSION: Questionable gallbladder sludge otherwise unremarkable right upper quadrant ultrasound. Dictated on workstation # [id number] Dict: 07/16/22920 Trans: 07/16/22927 SA [id number] Interpreted by: MADDY ARTEAGA MD Electronically signed by: Assessment/Plan Admission Diagnosis Intractable nausea and vomiting Admission Status: Inpatient Order (span 2 midnights) Reason for Inpatient Admission: failed outpatient management Assessment and Plan Intractable nausea and vomiting Cannabis hyperemesis Dehydration Lactic acidosis Hypokalemia Continue IVF CT Abd/Pelvis- no acute process HCG negative RUQ usg with gallbladder sludeg but no evidence of acute cholecystitis or stones Continue antiemetics Start bland diet Encouraged cessation of illicit drug use I called and updated Dr Coelho regarding admission Diagnosis/Problems Diagnosis/Problems (1) Cannabis hyperemesis syndrome concurrent with and due to cannabis abuse Status: Acute (2) Intractable nausea and vomiting Status: Acute MARY KAY NASSAR MD Jul 16, 2022 11:16
[2022-07-16 11:24] VITALS: BP 149/83
[2022-07-16] MEDS: diphenhydrAMINE 50 MG/ML INJ (BENADRYL) IV PRN ×2 (14:27→20:07)
[2022-07-16 15:12] VITALS: BP 162/99
[2022-07-16 19:35] VITALS: BP 160/78
[2022-07-16] MEDS ORDERED: NON-FORMULARY MEDICATION 1 EA EA (Escitalopram Oxalate 20 MG) PO SCH (21:00)
[2022-07-16 23:49] VITALS: BP 152/78
[2022-07-17] MEDS: D5 1/2 NS W/KCL 20 MEQ/L 1,000 ML IV SCH ×2 (01:39→13:07)
[2022-07-17] MEDS: PROMETHAZINE INJ 25 MG/ML (PHENERGAN) AMP IV PRN ×2 (02:53→08:06)
[2022-07-17] MEDS: diphenhydrAMINE 50 MG/ML INJ (BENADRYL) IV PRN ×2 (02:54→08:06)
[2022-07-17 04:27] VITALS: BP 159/77
[2022-07-17 05:33] LABS: HEMATOCRIT 40 % (35-52); HEMOGLOBIN 13.5 g/dL (11.5-16.0); MEAN CORPUSCULAR HEMOGLOBIN 29 pg (25-34); MEAN CORPUSCULAR HGB CONC 34 g/dL (32-36); MEAN CORPUSCULAR VOLUME 87 fL (80-99); MEAN PLATELET VOLUME 10.3 fL (9.0-12.2); PLATELET COUNT 293 10^3/uL (130-400); WHITE BLOOD COUNT 12.5 10^3/uL (4.3-11.0)
[2022-07-17 05:50] LABS: CALCIUM 9.9 MG/DL (8.5-10.1); CREATININE SERUM 0.91 MG/DL (0.60-1.30); POTASSIUM 3.7 MMOL/L (3.6-5.0)
[2022-07-17 07:05] VITALS: BP 132/84
[2022-07-17] MEDS: PANTOPRAZOLE 40 MG (PROTONIX) VIAL IV SCH (08:05)
[2022-07-17 11:23] VITALS: BP 143/83
--- NOTE | 2022-07-17 12:46 | Progress Note - Hospitalist ---
Subjective HPI/CC On Admission Date Seen by Provider: Jul 17, 2022 Patient is a 21-year-old female who presented to the hospital secondary to intractable nausea and vomiting. She has been in the emergency department 3 times now for similar symptoms. She was here on July 13, July 15, and July 16. She reports that it started on July 13 after eating at a local bar having a chicken sandwich and onion rings. She was sent home with Marilee from the emergency department but that did not help. She attempted to eat some chicken noodle soup yesterday and that started her vomiting and abdominal pain. Her symptoms were unable to be controlled in the ER and so she was admitted for further management. She reports feeling better this morning and is no longer vomiting but does have a scopolamine patch on. Mom is at bedside and assist with history. Mom reports she has been using marijuana to help her sleep and states that she knows patient is going to need to stop that. Subjective/Events-last exam Pt reports feeling a little better. Has eaten but vomited after that. Despite this is hopeful to go home. Mom is planning to take her back to [place] upon discharge. Focused Exam Lactate Level 07/15/22 23:00: Lactic Acid Level 3.33*H 07/16/22 02:57: Lactic Acid Level 0.87 Objective Exam Vital Signs Vital Signs Date Time Temp Pulse Resp B/P (MAP) Pulse Ox O2 Delivery O2 Flow Rate FiO2 07/17/22 11:23 36.4 55 18 143/83 (103) 100 Room Air Capillary Refill : Less Than 3 Seconds General Appearance: No Apparent Distress Respiratory: Lungs Clear Cardiovascular: Regular Rate, Rhythm, No Murmur Neurologic/Psychiatric: Alert, Oriented x3 Results/Procedures Lab Laboratory Tests 07/17/22 05:05 Patient resulted labs reviewed. Assessment/Plan Assessment and Plan Assess & Plan/Chief Complaint Intractable nausea and vomiting Cannabis hyperemesis Dehydration Lactic acidosis Hypokalemia Continue IVF CT Abd/Pelvis- no acute process HCG negative RUQ usg with gallbladder sludge but no evidence of acute cholecystitis or stones Continue antiemetics Encouraged cessation of illicit drug use Pt hopeful to DC home if she can tolerate lunch and dinner Diagnosis/Problems Diagnosis/Problems (1) Cannabis hyperemesis syndrome concurrent with and due to cannabis abuse Status: Acute (2) Intractable nausea and vomiting Status: Acute MARY KAY NASSAR MD Jul 17, 2022 12:45
[2022-07-17] MEDS ORDERED: ONDA4TAB11 SL (13:45)
[2022-07-17] MEDS ORDERED: PROM25TA14 PO (13:45)
--- NOTE | 2022-07-17 13:46 | Discharge Inst-Simple/Standard ---
Discharge Inst-Standard Discharge Medications New, Converted or Re-Newed RX: Transmitted to Pharmacy Patient Instructions/Follow Up Plan of Care/Instructions/FU: Please continue to take your medications as written. Please follow up with your primary care doctor to follow up this hospital stay. Activity as Tolerated: Yes Discharge Diet: Eat Small Frequent Meals Return to The Hospital For: Abdominal pain, worsening nausea, inability to keep food down, chest pain, shortness of breath, fever, weakness, if you feel you are getting worse. MARY KAY NASSAR MD Jul 17, 2022 13:46
[2022-07-17 15:26] VITALS: BP 144/88
[2022-07-17] MEDS ORDERED: PANT40TA2 PO (15:45)
[2022-07-17 18:20] VITALS: BP 144/88
[2022-07-19] MEDS ORDERED: SCOPOLAMINE PATCH REMOVAL TP SCH (08:59)
[2022-07-19] MEDS ORDERED: SCOPOLAMINE 1.5 MG (TRANSDERM-SCOP) PATCH TD SCH (09:00)
== END 2022-07-17 18:22 | disposition home or self-care (01) ==
LOC: EDUNIT# 22:16 → ER 22:17 → CSD 07-16 03:09 → 4TH 07-16 07:34
PROVIDERS: ADMIT Internal Medicine; ATTEND Internal Medicine
DX: R11.2 Nausea with vomiting, unspecified (principal); F12.10 Cannabis abuse, uncomplicated; E87.6 Hypokalemia; E87.20 Acidosis, unspecified; E86.0 Dehydration
CPT/HCPCS: 74177; 76705; 80048; 80053 ×2; 80306; 81000; 82150 ×2; 82550; 82553; 83605 ×2; 83690 ×2; 83735; 83874; 84443; 84484; 84703; 85007; 85025; 85027 ×2; 85652; 86141; 87040; 87088; 87636; 93041; 96375; 96376 ×2; 99284; G0378; G0480 ×2; 36415; 80320; 80329

== ENCOUNTER 2022-07-27 17:32 | Emergency (ER) | payer BC ==
[~2022-07-27] VITALS: Ht 162.6 cm; Wt 86.2 kg
[~2022-07-27 17:32] MED LIST changes: +ACET-2267 PO; +ESCI20TA39 PO; +PANT40TA2 PO; +PROM25TA14 PO
[2022-07-27] MEDS ORDERED: NS IV 1000 ML 1,000 ML IV STA (18:15)
[2022-07-27] MEDS ORDERED: diphenhydrAMINE 50 MG/ML INJ (BENADRYL) IV STA (18:21)
[2022-07-27 18:23] LABS: BASOPHILS # (AUTO) 0.1 10^3/uL (0.0-0.1); BASOPHILS % (AUTO) 0 % (0-10); EOSINOPHILS % (AUTO) 0 % (0-10); HEMATOCRIT 43 % (35-52); HEMOGLOBIN 15.5 g/dL (11.5-16.0); LYMPHOCYTES # (AUTO) 1.7 10^3/uL (1.0-4.0); LYMPHOCYTES % (AUTO) 9 % (12-44); MEAN CORPUSCULAR HEMOGLOBIN 31 pg (25-34); MEAN CORPUSCULAR HGB CONC 36 g/dL (32-36); MEAN CORPUSCULAR VOLUME 85 fL (80-99); MEAN PLATELET VOLUME 10.6 fL (9.0-12.2); MONOCYTES # (AUTO) 0.8 10^3/uL (0.0-1.0); MONOCYTES % (AUTO) 4 % (0-12); NEUTROPHILS # (AUTO) 17.1 10^3/uL (1.8-7.8); NEUTROPHILS % (AUTO) 86 % (42-75); PLATELET COUNT 360 10^3/uL (130-400); WHITE BLOOD COUNT 19.8 10^3/uL (4.3-11.0)
--- NOTE | 2022-07-27 18:23 | ED Abdominal Pain ---
General Chief Complaint: Abdominal/GI Problems Stated Complaint: VOMITING PASSING OUT Nursing Triage Note: PT TO ROOM BY WHEELCHAIR WITH PT PARENTS. PT STATES SHE BEGAN VOMITING AROUND 1330 TODAY AND FEELS SHE IS GOING TO PASS OUT AT TIMES. PT PARENTS REPORT SHE HAS HAD CRAMPING AND MUSCLE SPASMS WELL. PT WENT TO [facility], WAS GIVEN IM ZOFRAN, THEN CAME HERE History of Present Illness Date Seen by Provider: Jul 27, 2022 Time Seen by Provider: 18:10 Initial Comments 21-year-old female presents with nausea and vomiting. Patient reports that she has been having frequent nausea and vomiting. Patient been his seen here numerous times since the first of the year with cannabis hyperemesis syndrome. She claims that she has not smoked marijuana in 3 weeks please continue to have nausea vomiting. She is having cramping and muscle spasms. Patient went to urgent care where she was given Zofran with no relief and came here. No reports of fevers chills. Allergies and Home Medications Allergies Coded Allergies: No Known Drug Allergies (Unverified , 03/07/21) Patient Home Medication List Home Medication List Reviewed: Yes Acetaminophen (Tylenol Extra Strength) 500 Mg Tablet, 1,000 MG PO Q8H PRN for PAIN-MILD (1-4), (Reported) Entered as Reported by: CELAI FORBES on 07/16/22 1035 Escitalopram Oxalate (Escitalopram Oxalate) 20 Mg Tablet, 20 MG PO HS, (Reported) Entered as Reported by: CELIA FORBES on 07/16/22 1034 Ondansetron (Ondansetron Odt) 4 Mg Tab.rapdis, 4 MG SL Q4H PRN for NAUSEA/VOMITING Prescribed by: MARY KAY NASSAR on 07/17/22 1345 Pantoprazole Sodium (Protonix) 40 Mg Tablet.dr, 40 MG PO DAILY Prescribed by: MARY KAY NASSAR on 07/17/22 1545 Promethazine HCl (Promethazine Tablet) 25 Mg Tablet, 25 MG PO Q6H PRN for NAUSEA/VOMITING Prescribed by: MARY KAY NASSAR on 07/17/22 1345 Review of Systems Review of Systems Constitutional: No chills, No fever Respiratory: Denies Cough, Denies Shortness of Air Cardiovascular: Denies Chest Pain, Denies Lightheadedness Gastrointestinal: Nausea, Vomiting Genitourinary: No Symptoms Reported Musculoskeletal: see HPI Skin: no symptoms reported Psychiatric/Neurological: See HPI Endocrine: No Symptoms Reported Hematologic/Lymphatic: No Symptoms Reported Past Vkimtxe-Cejvol-Qouucp Hx Immunizations Up To Date First/Initial COVID19 Vaccinat: Y Second COVID19 Vaccination Emigdio: T Third COVID19 Vaccination Date: Y Past Medical History Surgery/Hospitalization HX: ACL repair, anxiety, depression Surgeries: No Respiratory: No Cardiac: No Neurological: No Gastrointestinal: No Family Medical History No Pertinent Family Hx Physical Exam Vital Signs Vital Signs - First Documented 07/27/22 17:52 Temp 36.4 Pulse 78 Resp 26 B/P (MAP) 145/83 (103) Pulse Ox 100 Capillary Refill : Height/Weight/BMI Height: '" Weight: lbs. oz. kg; 32.00 BMI Method: General Appearance: WD/WN, no apparent distress Respiratory: lungs clear, normal breath sounds Cardiovascular: normal peripheral pulses, regular rate, rhythm Extremities: normal range of motion, non-tender Neurologic/Psychiatric: alert, normal mood/affect, oriented x 3 Skin: normal color, warm/dry Progress/Results/Core Measures Results/Orders Lab Results Laboratory Tests Test 07/27/22 18:00 Range/Units White Blood Count 19.8 H 4.3-11.0 10^3/uL Red Blood Count 5.04 3.80-5.11 10^6/uL Hemoglobin 15.5 11.5-16.0 g/dL Hematocrit 43 35-52 % Mean Corpuscular Volume 85 80-99 fL Mean Corpuscular Hemoglobin 31 25-34 pg Mean Corpuscular Hemoglobin Concent 36 32-36 g/dL Red Cell Distribution Width 12.0 10.0-14.5 % Platelet Count 360 130-400 10^3/uL Mean Platelet Volume 10.6 9.0-12.2 fL Immature Granulocyte % (Auto) 1 % Neutrophils (%) (Auto) 86 H 42-75 % Lymphocytes (%) (Auto) 9 L 12-44 % Monocytes (%) (Auto) 4 0-12 % Eosinophils (%) (Auto) 0 0-10 % Basophils (%) (Auto) 0 0-10 % Neutrophils # (Auto) 17.1 H 1.8-7.8 10^3/uL Lymphocytes # (Auto) 1.7 1.0-4.0 10^3/uL Monocytes # (Auto) 0.8 0.0-1.0 10^3/uL Eosinophils # (Auto) 0.0 0.0-0.3 10^3/uL Basophils # (Auto) 0.1 0.0-0.1 10^3/uL Immature Granulocyte # (Auto) 0.1 0.0-0.1 10^3/uL Neutrophils % (Manual) 93 % Lymphocytes % (Manual) 1 % Monocytes % (Manual) 1 % Eosinophils % (Manual) 0 % Basophils % (Manual) 0 % Band Neutrophils 0 % Reactive Lymphocytes 5 % Blood Morphology Comment NORMAL Sodium Level 141 135-145 MMOL/L Potassium Level 3.0 L 3.6-5.0 MMOL/L Chloride Level 102 98-107 MMOL/L Carbon Dioxide Level 14 L 21-32 MMOL/L Anion Gap 25 H 5-14 MMOL/L Blood Urea Nitrogen 9 7-18 MG/DL Creatinine 0.89 0.60-1.30 MG/DL Estimat Glomerular Filtration Rate 94 BUN/Creatinine Ratio 10 Glucose Level 120 H 70-105 MG/DL Calcium Level 10.2 H 8.5-10.1 MG/DL Corrected Calcium 8.5-10.1 MG/DL Magnesium Level 2.0 1.6-2.4 MG/DL Total Bilirubin 1.1 H 0.1-1.0 MG/DL Aspartate Amino Transf (AST/SGOT) 24 5-34 U/L Alanine Aminotransferase (ALT/SGPT) 30 0-55 U/L Alkaline Phosphatase 49 40-136 U/L Total Protein 8.3 H 6.4-8.2 GM/DL Albumin 5.0 H 3.2-4.5 GM/DL Lipase 41 8-78 U/L My Orders Orders - WAN,SASCHA L DO Cbc With Automated Diff (07/27/22 18:15) Comprehensive Metabolic Panel (07/27/22 18:15) Hcg,Qualitative Urine (07/27/22 18:15) Lipase (07/27/22 18:15) Ua Culture If Indicated (07/27/22 18:15) Ns Iv 1000 Ml (Sodium Chloride 0.9%) (07/27/22 18:15) Diphenhydramine Injection (Benadryl Inje (07/27/22 18:21) Haloperidol Injection (Haldol Injectio (07/27/22 18:30) Magnesium (07/27/22 18:23) Manual Differential (07/27/22 18:00) Lactated Ringers (Lr 1000 Ml Iv Solution (07/27/22 18:52) Famotidine Injection (Pepcid Injection) (07/27/22 19:08) Lidocaine 2% Viscous 15 Ml (Xylocaine Vi (07/27/22 19:30) Antacid Suspension (Mylanta Suspension (07/27/22 19:30) Medications Given in ED Current Medications Medications Dose Ordered Sig/Meghana Route Start Time Stop Time Status Last Admin Dose Admin Al Hydrox/Mg Hydrox/Simethicone 30 ml ONCE ONCE PO 07/27/22 19:30 07/27/22 19:31 DC 07/27/22 19:43 30 ML Haloperidol Lactate 5 mg ONCE ONCE IV 07/27/22 18:30 07/27/22 18:31 DC 07/27/22 18:27 5 MG Lidocaine HCl 15 ml ONCE ONCE PO 07/27/22 19:30 07/27/22 19:31 DC 07/27/22 19:43 15 ML Vital Signs/I&O 07/27/22 17:52 Temp 36.4 Pulse 78 Resp 26 B/P (MAP) 145/83 (103) Pulse Ox 100 Blood Pressure Mean: 103 Progress Progress Note : Progress Note Patient wretching and symptoms improved drastically with Haldol and Benadryl consistent with cyclic vomiting/cannabis hyperemesis. Patient tolerated a GI cocktail with no further vomiting. She is also given a Prilosec. Patient's di agnostic studies were ordered, reviewed and interpreted by me. They are consistent with dehydration and vomiting. Patient was given 1 L normal saline and 1 L of LR. Patient was resting comfortably without any further retching or vomiting. I had a long discussion with patient and family regarding long-term treatment. I do suspect she likely has some gastritis and esophagitis from her frequent vomiting. She is started on Protonix which I discussed with family will take some time to work. We will add Carafate to help with her stomach irritation along with refill her Zofran. Discussed with her the need to start with a clear liquid diet and advance as tolerated. I also recommended she follow-up with GI specialist and consider an EGD and further evaluation. Patient stable and discharged home Departure Impression Primary Impression: Gastritis and gastroduodenitis Additional Impression: Cyclical vomiting Disposition: HOME, SELF-CARE Condition: Stable Departure-Patient Inst. Referrals: [facility] (PCP/Family) Primary Care Physician Patient Instructions: CLEAR LIQUID DIET ADULT/CHILD, Gastritis, Nausea and Vomiting, Adult Add. Discharge Instructions: Clear liquid diet for the next couple days and advance as tolerated. Please follow-up with your primary care provider and consider an EGD for further evaluation if symptoms continue or not improving. Turn to the ER as needed All discharge instructions reviewed with patient and/or family. Voiced understanding. Scripts Ondansetron (Ondansetron Odt) 4 Mg Tab.rapdis 4 MG PO Q6H PRN for NAUSEA/VOMITING, #20 TAB 0 Refills Prov: SASCHA WAN DO 07/27/22 Sucralfate (Sucralfate) 1 Gram/10 Ml Oral.susp 1 GM PO ACHS, #1000 ML 0 Refills Please take 1 hour prior to meal Prov: SASCHA WAN DO 07/27/22 SASCHA WAN DO Jul 27, 2022 18:23
[2022-07-27 18:25] LABS: CHLORIDE 102 MMOL/L (98-107); SODIUM 141 MMOL/L (135-145)
[2022-07-27 18:26] LABS: CALCIUM 10.2 MG/DL (8.5-10.1)
[2022-07-27 18:27] LABS: GLUCOSE 120 MG/DL (70-105); TOTAL PROTEIN 8.3 GM/DL (6.4-8.2)
[2022-07-27 18:28] LABS: CARBON DIOXIDE 14 MMOL/L (21-32)
[2022-07-27 18:29] LABS: BILIRUBIN,TOTAL 1.1 MG/DL (0.1-1.0)
[2022-07-27] MEDS ORDERED: HALOPERIDOL 5 MG/ML (HALDOL) VIAL IV ONE (18:30)
[2022-07-27 18:31] LABS: ALKALINE PHOSPHATASE 49 U/L (40-136); CREATININE SERUM 0.89 MG/DL (0.60-1.30); GFR ESTIMATED 94
[2022-07-27 18:32] LABS: BUN/CREATININE RATIO 10
[2022-07-27 18:34] LABS: ALANINE AMINOTRANSFERASE 30 U/L (0-55); LIPASE 41 U/L (8-78)
[2022-07-27] MEDS ORDERED: LACTATED RINGERS 1,000 ML IV STA (18:52)
[2022-07-27 18:55] LABS: BAND NEUTROPHILS 0 %; BASOPHILS % (MANUAL) 0 %; EOSINOPHILS % (MANUAL) 0 %; LYMPHOCYTES % (MANUAL) 1 %; MONOCYTES % (MANUAL) 1 %; NEUTROPHILS % (MANUAL) 93 %; RBC MORPH NORMAL; REACTIVE LYMPHOCYTES 5 %
[2022-07-27] MEDS ORDERED: FAMOTIDINE 20MG/2ML IV (PEPCID) IV STA (19:08)
[2022-07-27] MEDS ORDERED: ANTACID SUSP 30 ML UDC (MYLANTA) PO ONE (19:30)
[2022-07-27] MEDS ORDERED: LIDOCAINE 2% VISCOUS 15 ML UDC PO ONE (19:30)
[2022-07-27] MEDS ORDERED: SUCR1ORA15 PO (20:25)
[2022-07-27] MEDS ORDERED: ONDA4TAB11 PO (20:25)
[2022-07-27 20:30] VITALS: BP 129/69
== END 2022-07-27 20:34 | disposition home or self-care (01) ==
LOC: EDUNIT# 17:32 → ER 17:35
DX: K29.90 Gastroduodenitis, unspecified, without bleeding (principal)
CPT/HCPCS: 36415; 80053; 83690; 83735; 85007; 85027